=== PATIENT | male | born 1950 | race Caucasian/White ===

== ENCOUNTER → 2016-12-12 | Outpatient (CLI) | payer MEDICARE, MEDICAID ==
[~2016-12-12] MED LIST: AMIO200T44 PO; ASPI81 PO; ATOR40TA28 PO; CARV3 PO; FLUO20CA30 PO; FURO40 PO; LEVE500T53 PO; PANT40TA25 PO; POTA10TA17 PO; VALS80TA26 PO; WARF1 PO
[2016-12-12 13:56] LABS: BASOPHILS % (AUTO) 0.9 % (0.0-2.0); EOSINOPHILS % (AUTO) 2.6 % (1.0-6.0); HEMATOCRIT 35.6 % (41-53); HEMOGLOBIN 11.2 g/dL (13.5-17.5); LYMPHOCYTES # (AUTO) 1.2 K/uL (1.0-4.8); LYMPHOCYTES % (AUTO) 20.8 % (22.0-44.0); MEAN CORPUSCULAR HEMOGLOBIN 26.6 pg (26.0-34.0); MEAN CORPUSCULAR HGB CONC 31.5 G/dL (31.0-37.0); MEAN CORPUSCULAR VOLUME 85 fL (80-100); MONOCYTES # (AUTO) 0.5 K/uL (0.1-1.0); MONOCYTES % (AUTO) 8.9 % (2.0-9.0); NEUTROPHILS # (AUTO) 3.9 K/uL (1.8-7.7); NEUTROPHILS % (AUTO) 66.8 % (40.0-70.0); PLATELET COUNT (AUTO) 204 K/uL (150-450); RED BLOOD CELL COUNT(AUTO) 4.21 MIL/uL (4.50-5.90); RED CELL DISTRIBUTION WIDTH 19.1 % (11.5-14.5); WHITE BLOOD COUNT (AUTO) 5.8 K/uL (4.5-11.0)
[2016-12-12 13:58] LABS: RBC MORPHOLOGY COMMENT ABNORMAL RBC MORPH
[2016-12-12 14:10] LABS: HEMOGLOBIN A1C 6.2 % (4.5-6.2)
[2016-12-12 14:23] LABS: ALBUMIN 3.2 g/dL (3.4-5.0); BILIRUBIN,TOTAL 0.7 mg/dL (0.1-1.0); CALCIUM, TOTAL 8.6 mg/dL (8.8-10.5); CHOL/HDL RATIO 2.4 (4.2-7.3); CREATININE 1.3 mg/dL (0.60-1.30); DIGOXIN 0.34 ng/mL (0.90-2.00); POTASSIUM 3.6 mmol/L (3.5-5.1); THYROID STIMULATING HORMONE 3.38 uIU/mL (0.36-3.74); TOTAL PROTEIN, SERUM 7.9 g/dL (6.4-8.2)
== END | disposition home or self-care (01) ==
LOC: LABPV 10:05
PROVIDERS: ATTEND Internal Medicine Cardiovascular Disease
DX: I11.0 Hypertensive heart disease with heart failure (principal); I10 Essential (primary) hypertension; E11.8 Type 2 diabetes mellitus with unspecified complications; E55.9 Vitamin D deficiency, unspecified
CPT/HCPCS: 82306; 83036; 84439; 84443

== ENCOUNTER → 2017-03-11 | Outpatient (CLI) | payer MEDICARE, MEDICAID ==
[2017-03-11 09:23] LABS: BASOPHILS % (AUTO) 1.3 % (0.0-2.0); EOSINOPHILS % (AUTO) 5.3 % (1.0-6.0); HEMATOCRIT 48.2 % (41-53); HEMOGLOBIN 15.5 g/dL (13.5-17.5); LYMPHOCYTES # (AUTO) 1.6 K/uL (1.0-4.8); LYMPHOCYTES % (AUTO) 31.6 % (22.0-44.0); MEAN CORPUSCULAR HEMOGLOBIN 31.3 pg (26.0-34.0); MEAN CORPUSCULAR HGB CONC 32.1 G/dL (31.0-37.0); MEAN CORPUSCULAR VOLUME 97 fL (80-100); MONOCYTES # (AUTO) 0.5 K/uL (0.1-1.0); MONOCYTES % (AUTO) 9.7 % (2.0-9.0); NEUTROPHILS # (AUTO) 2.6 K/uL (1.8-7.7); NEUTROPHILS % (AUTO) 52.1 % (40.0-70.0); PLATELET COUNT (AUTO) 146 K/uL (150-450); RED BLOOD CELL COUNT(AUTO) 4.94 MIL/uL (4.50-5.90); RED CELL DISTRIBUTION WIDTH 15.4 % (11.5-14.5)
[2017-03-11 09:33] LABS: ALBUMIN 3.3 g/dL (3.4-5.0); BILIRUBIN,TOTAL 0.7 mg/dL (0.1-1.0); CALCIUM, TOTAL 8.6 mg/dL (8.8-10.5); CHOL/HDL RATIO 3.5 (4.2-7.3); CREATININE 1.3 mg/dL (0.60-1.30); DIGOXIN 0.87 ng/mL (0.90-2.00); TOTAL PROTEIN, SERUM 7.7 g/dL (6.4-8.2)
== END | disposition home or self-care (01) ==
LOC: LABPV 08:22
PROVIDERS: ATTEND Internal Medicine Cardiovascular Disease
DX: I11.0 Hypertensive heart disease with heart failure (principal); I50.9 Heart failure, unspecified; E11.8 Type 2 diabetes mellitus with unspecified complications; E55.9 Vitamin D deficiency, unspecified

== ENCOUNTER → 2017-05-11 | Outpatient (CLI) | payer MEDICARE, MEDICAID ==
[~2017-05-11] MED LIST changes: -AMIO200T44 PO
[2017-05-11 12:59] LABS: BASOPHILS % (AUTO) 1.1 % (0.0-2.0); EOSINOPHILS % (AUTO) 5.5 % (1.0-6.0); HEMATOCRIT 39.7 % (41-53); HEMOGLOBIN 13.8 g/dL (13.5-17.5); LYMPHOCYTES # (AUTO) 1.3 K/uL (1.0-4.8); LYMPHOCYTES % (AUTO) 31.5 % (22.0-44.0); MEAN CORPUSCULAR HEMOGLOBIN 34.2 pg (26.0-34.0); MEAN CORPUSCULAR HGB CONC 34.9 G/dL (31.0-37.0); MEAN CORPUSCULAR VOLUME 98 fL (80-100); MONOCYTES # (AUTO) 0.4 K/uL (0.1-1.0); MONOCYTES % (AUTO) 9.3 % (2.0-9.0); NEUTROPHILS # (AUTO) 2.1 K/uL (1.8-7.7); NEUTROPHILS % (AUTO) 52.6 % (40.0-70.0); PLATELET COUNT (AUTO) 144 K/uL (150-450); RED BLOOD CELL COUNT(AUTO) 4.04 MIL/uL (4.50-5.90); RED CELL DISTRIBUTION WIDTH 14.8 % (11.5-14.5)
[2017-05-11 13:24] LABS: ALANINE AMINOTRANSFERASE 35 U/L (12-78); ALBUMIN 3.5 g/dL (3.4-5.0); ANION GAP 12 mmol/L (8-16); ASPARTATE AMINOTRANSFERASE 45 U/L (15-37); BILIRUBIN,TOTAL 0.5 mg/dL (0.1-1.0); CALCIUM, TOTAL 9.5 mg/dL (8.8-10.5); CARBON DIOXIDE 25 mmol/L (22-29); CHLORIDE 100 mmol/L (98-107); CHOL/HDL RATIO 4.1 (4.2-7.3); CREATININE 1.09 mg/dL (0.60-1.30); DIGOXIN 0.87 ng/mL (0.90-2.00); GLOMERULAR FILTR. RATE CALC > 60 mL/min (>60); POTASSIUM 4.4 mmol/L (3.5-5.1); SODIUM SERUM 137 mmol/L (136-145); TOTAL PROTEIN, SERUM 7.8 g/dL (6.4-8.2); UREA NITROGEN, BLOOD 9 mg/dL (7-18)
== END | disposition home or self-care (01) ==
LOC: LABPV 09:22
PROVIDERS: ATTEND Internal Medicine Cardiovascular Disease
DX: I11.0 Hypertensive heart disease with heart failure (principal); I50.9 Heart failure, unspecified; E11.8 Type 2 diabetes mellitus with unspecified complications; E55.9 Vitamin D deficiency, unspecified

== ENCOUNTER 2017-07-25 11:44 | Emergency (ER) | payer MEDICARE, MEDICAID ==
[~2017-07-25] VITALS: Ht 170.2 cm; Wt 92.0 kg
[2017-07-25] MEDS ORDERED: WARF3TAB29 PO (12:06)
[2017-07-25 12:37] LABS: BASOPHILS # (AUTO) 0.05 K/uL (0.00-0.20); BASOPHILS % (AUTO) 0.8 % (0.0-2.0); EOSINOPHILS # (AUTO) 0.31 K/uL (0.00-0.70); EOSINOPHILS % (AUTO) 5.45 % (1.0-6.0); HEMATOCRIT 39.8 % (41-53); HEMOGLOBIN 13.5 g/dL (13.5-17.5); LYMPHOCYTES # (AUTO) 1.4 K/uL (1.0-4.8); LYMPHOCYTES % (AUTO) 23.8 % (22.0-44.0); MEAN CORPUSCULAR HEMOGLOBIN 35.4 pg (26.0-34.0); MEAN CORPUSCULAR VOLUME 104 fL (80-100); MONOCYTES # (AUTO) 0.7 K/uL (0.1-1.0); MONOCYTES % (AUTO) 11.9 % (2.0-9.0); NEUTROPHILS # (AUTO) 3.3 K/uL (1.8-7.7); PLATELET COUNT (AUTO) 178 K/uL (150-450); RED BLOOD CELL COUNT(AUTO) 3.82 MIL/uL (4.50-5.90); RED CELL DISTRIBUTION WIDTH 13.3 % (11.5-14.5); WHITE BLOOD COUNT (AUTO) 5.7 K/uL (4.5-11.0)
[2017-07-25 12:50] LABS: CREATININE 1.35 mg/dL (0.60-1.30); POTASSIUM 4.7 mmol/L (3.5-5.1)
[2017-07-25 12:51] LABS: ALBUMIN 3.3 g/dL (3.4-5.0); BILIRUBIN,TOTAL 0.4 mg/dL (0.1-1.0); TOTAL PROTEIN, SERUM 7.8 g/dL (6.4-8.2)
[2017-07-25 12:53] LABS: INR 1.8 (0.9-1.1); PROTHROMBIN TIME 18.5 SEC (9.4-11.6)
[2017-07-25 12:57] LABS: RBC MORPHOLOGY COMMENT ABNORMAL RBC MORPH
[2017-07-25] MEDS ORDERED: HYDROCODONE/ACETAMINOPHEN 5-325 MG TABLET PO ONE (13:15)
[2017-07-25] MEDS ORDERED: MORPHINE SULFATE 4 MG/ML SYRINGE IVP ONE (14:00)
[2017-07-25] MEDS ORDERED: ONDANSETRON HCL 4 MG/2 ML VIAL IVP ONE (14:00)
[2017-07-25] MEDS ORDERED: SODIUM CHLORIDE 0.9% 500 ML IV ONE (15:15)
[2017-07-25 16:16] VITALS: BP 119/63
== END 2017-07-25 16:20 | disposition home or self-care (01) ==
LOC: EMS 11:48
DX: M79.652 Pain in left thigh (principal); M79.672 Pain in left foot; I73.9 Peripheral vascular disease, unspecified; I11.0 Hypertensive heart disease with heart failure; I50.9 Heart failure, unspecified; I25.10 Atherosclerotic heart disease of native coronary artery without angina pectoris; E78.00 Pure hypercholesterolemia, unspecified; I48.91 Unspecified atrial fibrillation; I20.9 Angina pectoris, unspecified; Z95.1 Presence of aortocoronary bypass graft; Z95.0 Presence of cardiac pacemaker
CPT/HCPCS: 36415; 80053; 85025; 85379; 85610; 85730; 93005; 93925; 96361; 96374; 96375; 99285; J2270; J2405; J7040

== ENCOUNTER → 2017-09-15 | Outpatient (CLI) | payer MEDICARE, MEDICAID ==
[~2017-09-15] MED LIST changes: -WARF1 PO; +WARF3TAB29 PO
[2017-09-15 09:27] LABS: BASOPHILS % (AUTO) 0.8 % (0.0-2.0); EOSINOPHILS % (AUTO) 2.9 % (1.0-6.0); HEMATOCRIT 33.1 % (41-53); HEMOGLOBIN 11.7 g/dL (13.5-17.5); LYMPHOCYTES # (AUTO) 1.1 K/uL (1.0-4.8); LYMPHOCYTES % (AUTO) 16.9 % (22.0-44.0); MEAN CORPUSCULAR HEMOGLOBIN 35.5 pg (26.0-34.0); MEAN CORPUSCULAR HGB CONC 35.4 G/dL (31.0-37.0); MEAN CORPUSCULAR VOLUME 100 fL (80-100); MONOCYTES # (AUTO) 0.7 K/uL (0.1-1.0); MONOCYTES % (AUTO) 10.2 % (2.0-9.0); NEUTROPHILS # (AUTO) 4.5 K/uL (1.8-7.7); NEUTROPHILS % (AUTO) 69.2 % (40.0-70.0); PLATELET COUNT (AUTO) 179 K/uL (150-450); WHITE BLOOD COUNT (AUTO) 6.5 K/uL (4.5-11.0)
[2017-09-15 10:01] LABS: ALANINE AMINOTRANSFERASE 55 U/L (12-78); ALBUMIN 2.9 g/dL (3.4-5.0); ANION GAP 9 mmol/L (8-16); ASPARTATE AMINOTRANSFERASE 51 U/L (15-37); BILIRUBIN,TOTAL 0.6 mg/dL (0.1-1.0); CALCIUM, TOTAL 8.6 mg/dL (8.8-10.5); CARBON DIOXIDE 24 mmol/L (22-29); CHLORIDE 101 mmol/L (98-107); CHOL/HDL RATIO 5.3 (4.2-7.3); CREATININE 1.58 mg/dL (0.60-1.30); DIGOXIN 0.34 ng/mL (0.90-2.00); GLOMERULAR FILTR. RATE CALC 44 mL/min (>60); POTASSIUM 4.9 mmol/L (3.5-5.1); SODIUM SERUM 134 mmol/L (136-145); UREA NITROGEN, BLOOD 18 mg/dL (7-18)
[2017-09-15 10:20] LABS: RBC MORPHOLOGY COMMENT ABNORMAL RBC MORPH
== END | disposition home or self-care (01) ==
LOC: LABPV 08:29
PROVIDERS: ATTEND Internal Medicine Cardiovascular Disease
DX: I11.0 Hypertensive heart disease with heart failure (principal); I50.9 Heart failure, unspecified; E11.65 Type 2 diabetes mellitus with hyperglycemia; E55.9 Vitamin D deficiency, unspecified

== ENCOUNTER → 2017-10-23 | Outpatient (CLI) | payer MEDICARE, MEDICAID ==
[2017-10-23 10:14] LABS: EOSINOPHILS % (AUTO) 5.5 % (1.0-6.0); HEMOGLOBIN 11.3 g/dL (13.5-17.5); LYMPHOCYTES # (AUTO) 1.6 K/uL (1.0-4.8); LYMPHOCYTES % (AUTO) 28.8 % (22.0-44.0); MEAN CORPUSCULAR HEMOGLOBIN 35.5 pg (26.0-34.0); MEAN CORPUSCULAR HGB CONC 34.2 G/dL (31.0-37.0); MEAN CORPUSCULAR VOLUME 104 fL (80-100); MONOCYTES # (AUTO) 0.5 K/uL (0.1-1.0); MONOCYTES % (AUTO) 9.3 % (2.0-9.0); NEUTROPHILS % (AUTO) 55.4 % (40.0-70.0); PLATELET COUNT (AUTO) 193 K/uL (150-450); RED BLOOD CELL COUNT(AUTO) 3.17 MIL/uL (4.50-5.90); RED CELL DISTRIBUTION WIDTH 14.5 % (11.5-14.5)
[2017-10-23 10:28] LABS: BILIRUBIN,TOTAL 0.3 mg/dL (0.1-1.0); CALCIUM, TOTAL 8.9 mg/dL (8.8-10.5); CHOL/HDL RATIO 2.5 (4.2-7.3); CREATININE 1.51 mg/dL (0.60-1.30); TOTAL PROTEIN, SERUM 7.1 g/dL (6.4-8.2)
[2017-10-24 01:34] LABS: LDL CHOLESTEROL DIRECT 123 mg/dL (0-99)
== END | disposition home or self-care (01) ==
LOC: LABPV 08:20
PROVIDERS: ATTEND Internal Medicine Cardiovascular Disease
DX: I11.0 Hypertensive heart disease with heart failure (principal); I50.9 Heart failure, unspecified; E11.8 Type 2 diabetes mellitus with unspecified complications; E55.9 Vitamin D deficiency, unspecified
CPT/HCPCS: 83721

== ENCOUNTER → 2018-02-08 | Outpatient (CLI) | payer MEDICARE ==
[~2018-02-08] MED LIST changes: -VALS80TA26 PO; +VALS80TA31 PO
[2018-02-08 11:08] LABS: BASOPHILS % (AUTO) 0.9 % (0.0-2.0); EOSINOPHILS % (AUTO) 1.8 % (1.0-6.0); HEMATOCRIT 32.9 % (41-53); HEMOGLOBIN 11.4 g/dL (13.5-17.5); LYMPHOCYTES # (AUTO) 1.4 K/uL (1.0-4.8); LYMPHOCYTES % (AUTO) 20.1 % (22.0-44.0); MEAN CORPUSCULAR HEMOGLOBIN 35.1 pg (26.0-34.0); MEAN CORPUSCULAR HGB CONC 34.6 G/dL (31.0-37.0); MEAN CORPUSCULAR VOLUME 102 fL (80-100); MONOCYTES # (AUTO) 0.9 K/uL (0.1-1.0); NEUTROPHILS # (AUTO) 4.5 K/uL (1.8-7.7); NEUTROPHILS % (AUTO) 64.2 % (40.0-70.0); PLATELET COUNT (AUTO) 205 K/uL (150-450); RED BLOOD CELL COUNT(AUTO) 3.24 MIL/uL (4.50-5.90)
[2018-02-08 12:01] LABS: ALANINE AMINOTRANSFERASE 30 U/L (12-78); ALBUMIN 2.8 g/dL (3.4-5.0); ALKALINE PHOSPHATASE 144 U/L (46-116); ANION GAP 10 mmol/L (8-16); ASPARTATE AMINOTRANSFERASE 33 U/L (15-37); BILIRUBIN,TOTAL 0.4 mg/dL (0.1-1.0); CALCIUM, TOTAL 8.8 mg/dL (8.8-10.5); CARBON DIOXIDE 27 mmol/L (22-29); CHLORIDE 99 mmol/L (98-107); CHOL/HDL RATIO 3.2 (4.2-7.3); CHOLESTEROL 190 mg/dL (131-200); CREATININE 1.62 mg/dL (0.60-1.30); GLOMERULAR FILTR. RATE CALC 43 mL/min (>60); GLUCOSE,RANDOM 110 mg/dL (70-110); HDL CHOLESTEROL 60 mg/dL (40-60); POTASSIUM 4.7 mmol/L (3.5-5.1); SODIUM SERUM 136 mmol/L (136-145); TOTAL PROTEIN, SERUM 6.8 g/dL (6.4-8.2); TRIGLYCERIDES 459 mg/dL (15-150); UREA NITROGEN, BLOOD 14 mg/dL (7-18)
[2018-02-08 12:11] LABS: DIGOXIN < 0.20 ng/mL (0.90-2.00)
== END | disposition home or self-care (01) ==
LOC: LABPV 09:04
PROVIDERS: ATTEND Internal Medicine Cardiovascular Disease
DX: I11.0 Hypertensive heart disease with heart failure (principal); I50.9 Heart failure, unspecified; E11.8 Type 2 diabetes mellitus with unspecified complications; E55.9 Vitamin D deficiency, unspecified

== ENCOUNTER → 2018-02-18 | Outpatient (CLI) | payer MEDICARE ==
[2018-02-18 11:48] LABS: INR 1.1 (0.9-1.1); PROTHROMBIN TIME 11.5 SEC (9.4-11.6)
== END | disposition home or self-care (01) ==
LOC: LABPV 09:47
PROVIDERS: ATTEND Internal Medicine Cardiovascular Disease
DX: I11.0 Hypertensive heart disease with heart failure (principal); I50.9 Heart failure, unspecified

== ENCOUNTER → 2018-03-03 | Outpatient (CLI) | payer MEDICARE ==
[2018-03-03 10:14] LABS: PROTHROMBIN TIME 10.5 SEC (9.4-11.6)
[2018-03-03 10:20] LABS: CALCIUM, TOTAL 8.8 mg/dL (8.8-10.5); CREATININE 1.56 mg/dL (0.60-1.30); POTASSIUM 5.2 mmol/L (3.5-5.1)
== END | disposition home or self-care (01) ==
LOC: LABPV 09:01
PROVIDERS: ATTEND Internal Medicine Cardiovascular Disease
DX: I11.0 Hypertensive heart disease with heart failure (principal); I50.9 Heart failure, unspecified; E11.8 Type 2 diabetes mellitus with unspecified complications; E55.9 Vitamin D deficiency, unspecified; D56.5 Hemoglobin E-beta thalassemia

== ENCOUNTER 2018-04-13 09:13 | Emergency (ER) | payer MEDICARE ==
[~2018-04-13] VITALS: Ht 170.2 cm; Wt 95.0 kg
[~2018-04-13 09:13] MED LIST changes: -VALS80TA31 PO; +VALS80TA32 PO
[2018-04-13] MEDS ORDERED: LISI-661 PO (10:03)
[2018-04-13] MEDS ORDERED: FURO40 PO (10:03)
[2018-04-13] MEDS ORDERED: DIGO-44 PO (10:03)
[2018-04-13] MEDS ORDERED: KDUR20 PO (10:03)
[2018-04-13] MEDS ORDERED: VITAD1000 PO (10:03)
[2018-04-13] MEDS ORDERED: CLOP75 PO (10:03)
[2018-04-13] MEDS ORDERED: CYAN100 PO (10:03)
[2018-04-13] MEDS ORDERED: SPIR25 PO (10:03)
[2018-04-13] MEDS ORDERED: PARO20TA24 PO (10:03)
[2018-04-13] MEDS ORDERED: FOLI1 PO (10:03)
[2018-04-13] MEDS ORDERED: IBUPROFEN 800 MG TABLET PO ONE (10:15)
[2018-04-13] MEDS ORDERED: MORPHINE SULFATE 4 MG/ML SYRINGE IM ONE (11:00)
[2018-04-13] MEDS ORDERED: ONDANSETRON HCL 4 MG/2 ML VIAL IVP ONE (12:00)
[2018-04-13] MEDS ORDERED: FentaNYL CITRATE-PF 100 MCG/2 ML VIAL IVP ONE (12:00)
[2018-04-13 14:11] VITALS: BP 128/74
== END 2018-04-13 14:29 | disposition home or self-care (01) ==
LOC: EMS 09:16
DX: S82.841A Displaced bimalleolar fracture of right lower leg, initial encounter for closed fracture (principal); I11.0 Hypertensive heart disease with heart failure; I50.9 Heart failure, unspecified; E78.00 Pure hypercholesterolemia, unspecified; I48.91 Unspecified atrial fibrillation; I25.10 Atherosclerotic heart disease of native coronary artery without angina pectoris; X50.1XXA Overexertion from prolonged static or awkward postures, initial encounter; Y93.89 Activity, other specified; Y92.89 Other specified places as the place of occurrence of the external cause; Y99.8 Other external cause status
CPT/HCPCS: 27810; 73610; 73630; 93926; 96372; 96374; 99152; 99153; 99285; J2270; J2405; J3010

== ENCOUNTER 2018-04-23 22:02 | Inpatient (IN) | payer MEDICARE ==
[~2018-04-23] VITALS: Ht 170.2 cm; Wt 96.1 kg
[~2018-04-23 22:02] MED LIST changes: -ATOR40TA28 PO; +CLOP75 PO; +CYAN100 PO; +DIGO-44 PO; -FLUO20CA30 PO; +FOLI1 PO; +KDUR20 PO; +LISI-661 PO; -PANT40TA25 PO; +PARO20TA24 PO; -POTA10TA17 PO; +SPIR25 PO; -VALS80TA32 PO; +VITAD1000 PO; -WARF3TAB29 PO
[2018-04-23] MEDS ORDERED: SODIUM CHLORIDE 0.9% 100 ML ONE (22:17)
[2018-04-23] MEDS ORDERED: IOVERSOL 350 MG/ML 100 ML VIAL ONE (22:17)
[2018-04-23 22:27] LABS: BASOPHILS % (AUTO) 1.5 % (0.0-2.0); EOSINOPHILS % (AUTO) 4.5 % (1.0-6.0); HEMATOCRIT 30.6 % (41-53); HEMOGLOBIN 10.7 g/dL (13.5-17.5); LYMPHOCYTES # (AUTO) 1.5 K/uL (1.0-4.8); LYMPHOCYTES % (AUTO) 30.6 % (22.0-44.0); MEAN CORPUSCULAR HEMOGLOBIN 35.3 pg (26.0-34.0); MEAN CORPUSCULAR HGB CONC 34.9 G/dL (31.0-37.0); MEAN CORPUSCULAR VOLUME 101 fL (80-100); MONOCYTES # (AUTO) 0.6 K/uL (0.1-1.0); MONOCYTES % (AUTO) 11.6 % (2.0-9.0); NEUTROPHILS # (AUTO) 2.6 K/uL (1.8-7.7); NEUTROPHILS % (AUTO) 51.8 % (40.0-70.0); PLATELET COUNT (AUTO) 218 K/uL (150-450); RED BLOOD CELL COUNT(AUTO) 3.03 MIL/uL (4.50-5.90); RED CELL DISTRIBUTION WIDTH 13.1 % (11.5-14.5)
[2018-04-23 22:36] LABS: ANION GAP 11 mmol/L (8-16); CALCIUM, TOTAL 9.1 mg/dL (8.8-10.5); CARBON DIOXIDE 26 mmol/L (22-29); CHLORIDE 101 mmol/L (98-107); CREATININE 1.68 mg/dL (0.60-1.30); GLOMERULAR FILTR. RATE CALC 41 mL/min (>60); GLUCOSE,RANDOM 112 mg/dL (70-110); POTASSIUM 4.3 mmol/L (3.5-5.1); SODIUM SERUM 138 mmol/L (136-145); UREA NITROGEN, BLOOD 18 mg/dL (7-18)
[2018-04-23 22:40] LABS: INR 0.9 (0.9-1.1); PROTHROMBIN TIME 9.8 SEC (9.4-11.6)
[2018-04-23 22:42] LABS: ALANINE AMINOTRANSFERASE 42 U/L (12-78); ALBUMIN 3.2 g/dL (3.4-5.0); ALKALINE PHOSPHATASE 224 U/L (46-116); ASPARTATE AMINOTRANSFERASE 38 U/L (15-37); BILIRUBIN,TOTAL 0.3 mg/dL (0.1-1.0); CREATINE KINASE, TOTAL 69 U/L (39-308); TOTAL PROTEIN, SERUM 7.6 g/dL (6.4-8.2)
[2018-04-23] MEDS ORDERED: ONDANSETRON HCL 4 MG/2 ML VIAL IVP PRN (22:45)
[2018-04-23] MEDS ORDERED: ACETAMINOPHEN 325 MG TABLET PO PRN (22:45)
[2018-04-23] MEDS ORDERED: ALBUTEROL SULFATE 2.5 MG/0.5 ML NEB SOLUTION NEB PRN (22:45)
[2018-04-23] MEDS ORDERED: DEXTROSE 50%-WATER 25 GM/50 ML SYRINGE IVP PRN (22:45)
[2018-04-23] MEDS ORDERED: INSULIN LISPRO 100 UNITS/ML SQ PRN (22:45)
[2018-04-23] MEDS ORDERED: MAGNESIUM HYDROXIDE SUSPENSION 30 ML UDCUP PO PRN (22:45)
[2018-04-23] MEDS ORDERED: LORazepam 2 MG/ML VIAL IVP PRN (22:45)
[2018-04-23] MEDS ORDERED: LEVO50 PO (22:55)
[2018-04-23] MEDS ORDERED: ATOR20TA86 PO (22:55)
[2018-04-23] MEDS: LevETIRAcetam 750 MG in DEXTROSE 5%-WATER 100 ML IV SCH (23:02)
[2018-04-23] MEDS: CLOPIDOGREL BISULFATE 75 MG TABLET PO SCH (23:17)
[2018-04-23] MEDS: ATORVASTATIN CALCIUM 40 MG TABLET PO SCH (23:17)
[2018-04-23] MEDS: ASPIRIN 81 MG CHEWABLE TABLET PO SCH (23:18)
[2018-04-24] VITALS (7 sets, daily range): BP systolic 101–123; BP diastolic 50–61
[2018-04-24 01:34] LABS: APPEARANCE,URINE CLEAR (CLEAR); BILIRUBIN,URINE NEGATIVE (NEGATIVE); GLUCOSE, URINE (UA) NEGATIVE (NEGATIVE); KETONES,URINE NEGATIVE (NEGATIVE); LEUKOCYTE ESTERASE ,URINE NEGATIVE (NEGATIVE); NITRATE,URINE NEGATIVE (NEGATIVE); OCCULT BLOOD,URINE NEGATIVE (NEGATIVE); PH,URINE 5.5 (5.0-8.0); PROTEIN,URINE NEGATIVE (NEGATIVE); UROBILINOGEN,URINE 0.2 mg/dL (<=1.0)
[2018-04-24] MEDS: DOCUSATE SODIUM 100 MG CAPSULE PO SCH ×2 (08:00→20:42)
[2018-04-24] MEDS: HEPARIN SODIUM,PORCINE 5,000 UNITS/ML VIAL SQ SCH ×2 (08:00→20:50)
[2018-04-24] MEDS ORDERED: HYDROCODONE/ACETAMINOPHEN 5-325 MG TABLET PO PRN (08:00)
[2018-04-24] MEDS: CARVEDILOL 6.25 MG TABLET PO SCH ×2 (08:01→20:43)
[2018-04-24] MEDS: PANTOPRAZOLE SODIUM 40 MG/VIAL IVP SCH (08:01)
[2018-04-24 10:02] LABS: BASOPHILS % (AUTO) 1.4 % (0.0-2.0); EOSINOPHILS % (AUTO) 4.5 % (1.0-6.0); HEMATOCRIT 28.7 % (41-53); LYMPHOCYTES # (AUTO) 1.1 K/uL (1.0-4.8); LYMPHOCYTES % (AUTO) 24.3 % (22.0-44.0); MEAN CORPUSCULAR HEMOGLOBIN 35.2 pg (26.0-34.0); MEAN CORPUSCULAR VOLUME 101 fL (80-100); MONOCYTES # (AUTO) 0.5 K/uL (0.1-1.0); MONOCYTES % (AUTO) 11.1 % (2.0-9.0); NEUTROPHILS # (AUTO) 2.7 K/uL (1.8-7.7); NEUTROPHILS % (AUTO) 58.7 % (40.0-70.0); PLATELET COUNT (AUTO) 209 K/uL (150-450); RED BLOOD CELL COUNT(AUTO) 2.86 MIL/uL (4.50-5.90); RED CELL DISTRIBUTION WIDTH 12.8 % (11.5-14.5)
[2018-04-24 10:13] LABS: CALCIUM, TOTAL 8.9 mg/dL (8.8-10.5); CREATININE 1.31 mg/dL (0.60-1.30); POTASSIUM 4.1 mmol/L (3.5-5.1)
[2018-04-24] MEDS ORDERED: SODIUM CHLORIDE 0.9% 250 ML IV ONE (10:57)
[2018-04-24 11:08] LABS: GLUCOMETER DEV NAME(LOC) 5N 1P; GLUCOSE,POINT OF CARE 109 MG/DL (70-110)
[2018-04-24] MEDS: LevETIRAcetam 750 MG in DEXTROSE 5%-WATER 100 ML IV SCH ×2 (11:21→23:15)
[2018-04-24] MEDS: OxyCODONE HCL/ACETAMINOPHEN 5-325 MG TABLET PO PRN ×2 (15:20→23:21)
[2018-04-24 19:18] LABS: GLUCOMETER DEV NAME(LOC) 5N 1P; GLUCOSE,POINT OF CARE 120 MG/DL (70-110)
[2018-04-24 19:18] LABS: GLUCOMETER DEV NAME(LOC) 5N 1P; GLUCOSE,POINT OF CARE 114 MG/DL (70-110)
[2018-04-24] MEDS: ATORVASTATIN CALCIUM 40 MG TABLET PO SCH (20:42)
[2018-04-24] MEDS: CLOPIDOGREL BISULFATE 75 MG TABLET PO SCH (20:42)
[2018-04-24] MEDS: ASPIRIN 81 MG CHEWABLE TABLET PO SCH (20:43)
[2018-04-25 04:40] VITALS: BP 121/62
[2018-04-25 07:18] LABS: GLUCOMETER DEV NAME(LOC) 5N 1P; GLUCOSE,POINT OF CARE 98 MG/DL (70-110)
[2018-04-25 07:18] LABS: GLUCOMETER DEV NAME(LOC) 5N 1P; GLUCOSE,POINT OF CARE 116 MG/DL (70-110)
[2018-04-25 07:50] VITALS: BP 123/60
[2018-04-25] MEDS: HEPARIN SODIUM,PORCINE 5,000 UNITS/ML VIAL SQ SCH (08:06)
[2018-04-25] MEDS: DOCUSATE SODIUM 100 MG CAPSULE PO SCH (08:06)
[2018-04-25] MEDS: CARVEDILOL 6.25 MG TABLET PO SCH (08:06)
[2018-04-25] MEDS: PANTOPRAZOLE SODIUM 40 MG/VIAL IVP SCH (08:06)
[2018-04-25 11:34] VITALS: BP 111/56
[2018-04-25] MEDS: OxyCODONE HCL/ACETAMINOPHEN 5-325 MG TABLET PO PRN (11:41)
[2018-04-25] MEDS: LevETIRAcetam 750 MG in DEXTROSE 5%-WATER 100 ML IV SCH (11:41)
[2018-04-25 15:19] VITALS: BP 128/73
[2018-04-25] MEDS ORDERED: CLOP75 PO (16:44)
== END 2018-04-25 16:50 | disposition home or self-care (01) | DRG 683 ==
LOC: EMS 22:04 → 5N 23:12
PROVIDERS: ADMIT Internal Medicine; ATTEND Internal Medicine
DX: N17.9 Acute kidney failure, unspecified (principal); G45.9 Transient cerebral ischemic attack, unspecified; I50.40 Unspecified combined systolic (congestive) and diastolic (congestive) heart failure; E11.9 Type 2 diabetes mellitus without complications; E66.9 Obesity, unspecified; E78.00 Pure hypercholesterolemia, unspecified; E78.5 Hyperlipidemia, unspecified; F03.90 Unspecified dementia, unspecified severity, without behavioral disturbance, psychotic disturbance, mood disturbance, and anxiety; G40.909 Epilepsy, unspecified, not intractable, without status epilepticus; I11.0 Hypertensive heart disease with heart failure; I25.10 Atherosclerotic heart disease of native coronary artery without angina pectoris; I48.2 Chronic atrial fibrillation; Z79.4 Long term (current) use of insulin; Z95.1 Presence of aortocoronary bypass graft; Z79.899 Other long term (current) drug therapy; Z79.82 Long term (current) use of aspirin; Z95.0 Presence of cardiac pacemaker; Z68.33 Body mass index [BMI] 33.0-33.9, adult; S82.91XD Unspecified fracture of right lower leg, subsequent encounter for closed fracture with routine healing; Z86.73 Personal history of transient ischemic attack (TIA), and cerebral infarction without residual deficits
CPT/HCPCS: 70496; 93005; 93306; 97161; 99291; C9113; G0482; J0712; J1644; J7050; J7060

== ENCOUNTER 2018-06-17 09:19 | Emergency (ER) | payer MEDICARE ==
[~2018-06-17] VITALS: Ht 170.2 cm; Wt 95.0 kg
[~2018-06-17 09:19] MED LIST changes: +ATOR20TA86 PO; -DIGO-44 PO; -FOLI1 PO; -KDUR20 PO; +LEVO50 PO; -LISI-661 PO; -PARO20TA24 PO; -SPIR25 PO
[2018-06-17] MEDS ORDERED: FentaNYL CITRATE-PF 100 MCG/2 ML VIAL IM ONE (11:15)
[2018-06-17] MEDS ORDERED: ONDANSETRON HCL 4 MG/2 ML VIAL IM ONE (11:15)
[2018-06-17 11:58] VITALS: BP 120/69
== END 2018-06-17 14:02 | disposition home or self-care (01) ==
LOC: EMS 09:20
DX: S82.61XG Displaced fracture of lateral malleolus of right fibula, subsequent encounter for closed fracture with delayed healing (principal); I48.91 Unspecified atrial fibrillation; I20.9 Angina pectoris, unspecified; I25.10 Atherosclerotic heart disease of native coronary artery without angina pectoris; I11.0 Hypertensive heart disease with heart failure; I50.9 Heart failure, unspecified; E78.00 Pure hypercholesterolemia, unspecified; Z86.73 Personal history of transient ischemic attack (TIA), and cerebral infarction without residual deficits; Z95.0 Presence of cardiac pacemaker; Z95.1 Presence of aortocoronary bypass graft; Z79.82 Long term (current) use of aspirin; X58.XXXD Exposure to other specified factors, subsequent encounter
CPT/HCPCS: 73610; 96372; 99284; J2405; J3010

== ENCOUNTER 2018-12-25 04:49 | Inpatient (IN) | payer MEDICARE ==
[~2018-12-25] VITALS: Ht 170.2 cm; Wt 97.6 kg
[~2018-12-25 04:49] MED LIST changes: -CLOP75 PO; +CLOP75TA3 PO; -CYAN100 PO; +CYAN100T3 PO
[2018-12-25] MEDS ORDERED: PARO20TA24 PO (05:58)
[2018-12-25] MEDS ORDERED: APIX5TAB PO (05:58)
[2018-12-25 06:06] LABS: BASOPHILS % (AUTO) 1.2 % (0.0-2.0); EOSINOPHILS % (AUTO) 3.5 % (1.0-6.0); HEMATOCRIT 40.2 % (41-53); HEMOGLOBIN 13.1 g/dL (13.5-17.5); LYMPHOCYTES # (AUTO) 0.7 K/uL (1.0-4.8); LYMPHOCYTES % (AUTO) 10.9 % (22.0-44.0); MEAN CORPUSCULAR HEMOGLOBIN 30.7 pg (26.0-34.0); MEAN CORPUSCULAR HGB CONC 32.7 G/dL (31.0-37.0); MEAN CORPUSCULAR VOLUME 94 fL (80-100); MONOCYTES # (AUTO) 0.7 K/uL (0.1-1.0); MONOCYTES % (AUTO) 10.1 % (2.0-9.0); NEUTROPHILS % (AUTO) 74.3 % (40.0-70.0); RED BLOOD CELL COUNT(AUTO) 4.28 MIL/uL (4.50-5.90); RED CELL DISTRIBUTION WIDTH 14.9 % (11.5-14.5)
[2018-12-25 06:18] LABS: CALCIUM, TOTAL 8.8 mg/dL (8.8-10.5); CREATININE 1.22 mg/dL (0.60-1.30); POTASSIUM 3.9 mmol/L (3.5-5.1)
[2018-12-25 06:19] LABS: INR 1.3 (0.9-1.1); PROTHROMBIN TIME 13.4 SEC (9.4-11.6)
[2018-12-25 06:42] LABS: ALBUMIN 3.1 g/dL (3.4-5.0); BILIRUBIN,TOTAL 1.1 mg/dL (0.1-1.0); TOTAL PROTEIN, SERUM 7.3 g/dL (6.4-8.2)
[2018-12-25 07:09] LABS: PLATELET COUNT (AUTO) 82 K/uL (150-450)
[2018-12-25] MEDS ORDERED: AZITHROMYCIN 500 MG/NS 250 ML IV ONE (07:30)
[2018-12-25] MEDS ORDERED: FUROSEMIDE 40 MG/4 ML VIAL IVP ONE ×2 (07:30→22:00)
[2018-12-25 07:34] LABS: LACTIC ACID 1.2 mmol/L (0.4-2.0)
[2018-12-25] MEDS ORDERED: 0.9% SODIUM CHLORIDE 10 ML SYRINGE IVP PRN (08:15)
[2018-12-25] MEDS ORDERED: ACETAMINOPHEN 325 MG TABLET PO PRN (08:15)
[2018-12-25] MEDS ORDERED: ONDANSETRON HCL 4 MG/2 ML VIAL IVP PRN ×2 (08:15→21:45)
[2018-12-25 08:48] LABS: APPEARANCE,URINE CLEAR (CLEAR); BILIRUBIN,URINE NEGATIVE (NEGATIVE); GLUCOSE, URINE (UA) NEGATIVE (NEGATIVE); KETONES,URINE NEGATIVE (NEGATIVE); LEUKOCYTE ESTERASE ,URINE NEGATIVE (NEGATIVE); NITRATE,URINE NEGATIVE (NEGATIVE); OCCULT BLOOD,URINE NEGATIVE (NEGATIVE); PH,URINE 5.5 (5.0-8.0); PROTEIN,URINE POS 1+ (NEGATIVE)
[2018-12-25 09:13] LABS: BACTERIA,URINE None Seen /HPF (None Seen); RBC,URINE None Seen /HPF (0-2); SQUAMOUS EPITHELIAL CELL,UR Few /LPF (None Seen); WBC,URINE 0-2 /HPF (0-5)
[2018-12-25 20:54] VITALS: BP 127/67
[2018-12-25] MEDS ORDERED: IPRATROPIUM BROMIDE 0.5 MG/2.5 ML NEB SOLUTION NEB PRN (21:45)
[2018-12-25] MEDS ORDERED: FUROSEMIDE 40 MG TABLET PO SCH (21:45)
[2018-12-25] MEDS ORDERED: BISACODYL 10 MG RECTAL RECTAL SUPPOSITORY PR PRN (21:45)
[2018-12-25] MEDS ORDERED: HYDROCODONE/ACETAMINOPHEN 5-325 MG TABLET PO PRN (21:45)
[2018-12-25] MEDS ORDERED: ALBUTEROL SULFATE 2.5 MG/0.5 ML NEB SOLUTION NEB PRN (21:45)
[2018-12-25] MEDS ORDERED: MORPHINE SULFATE 2 MG/ML SYRINGE IVP PRN (21:45)
[2018-12-25] MEDS ORDERED: MAGNESIUM HYDROXIDE SUSPENSION 30 ML UDCUP PO PRN (21:45)
[2018-12-25] MEDS: LevETIRAcetam 500 MG TABLET PO SCH (22:03)
[2018-12-25] MEDS: CLOPIDOGREL BISULFATE 75 MG TABLET PO SCH (22:03)
[2018-12-25] MEDS: APIXABAN 5 MG TABLET PO SCH (22:14)
[2018-12-25] MEDS: CARVEDILOL 25 MG TABLET PO SCH (22:14)
[2018-12-25 23:54] VITALS: BP 129/68
[2018-12-26] MEDS: ZOLPIDEM TARTRATE 5 MG TABLET PO PRN (01:09)
[2018-12-26 05:36] VITALS: BP 125/71
[2018-12-26] MEDS: LEVOTHYROXINE SODIUM 50 MCG TABLET PO SCH (06:35)
[2018-12-26 06:48] LABS: BASOPHILS % (AUTO) 1.1 % (0.0-2.0); EOSINOPHILS % (AUTO) 4.9 % (1.0-6.0); HEMATOCRIT 37.4 % (41-53); HEMOGLOBIN 12.4 g/dL (13.5-17.5); LYMPHOCYTES # (AUTO) 0.9 K/uL (1.0-4.8); LYMPHOCYTES % (AUTO) 19.4 % (22.0-44.0); MEAN CORPUSCULAR HEMOGLOBIN 30.9 pg (26.0-34.0); MEAN CORPUSCULAR HGB CONC 33.2 G/dL (31.0-37.0); MEAN CORPUSCULAR VOLUME 93 fL (80-100); MONOCYTES # (AUTO) 0.6 K/uL (0.1-1.0); NEUTROPHILS % (AUTO) 62.6 % (40.0-70.0); PLATELET COUNT (AUTO) 87 K/uL (150-450); RED BLOOD CELL COUNT(AUTO) 4.01 MIL/uL (4.50-5.90); RED CELL DISTRIBUTION WIDTH 14.8 % (11.5-14.5)
[2018-12-26 07:32] LABS: ALANINE AMINOTRANSFERASE 14 U/L (12-78); ALKALINE PHOSPHATASE 274 U/L (46-116); ANION GAP 10 mmol/L (8-16); ASPARTATE AMINOTRANSFERASE 29 U/L (15-37); BILIRUBIN,TOTAL 1.2 mg/dL (0.1-1.0); CALCIUM, TOTAL 8.9 mg/dL (8.8-10.5); CARBON DIOXIDE 28 mmol/L (22-29); CHLORIDE 102 mmol/L (98-107); CREATININE 1.11 mg/dL (0.60-1.30); GLOMERULAR FILTR. RATE CALC > 60 mL/min (>60); GLUCOSE,RANDOM 104 mg/dL (70-110); POTASSIUM 3.1 mmol/L (3.5-5.1); SODIUM SERUM 140 mmol/L (136-145); TOTAL PROTEIN, SERUM 6.8 g/dL (6.4-8.2); UREA NITROGEN, BLOOD 12 mg/dL (7-18)
[2018-12-26 08:07] VITALS: BP 138/69
[2018-12-26] MEDS: ALBUTEROL SULFATE 2.5 MG/0.5 ML NEB SOLUTION NEB SCH ×3 (08:56→20:13)
[2018-12-26] MEDS: IPRATROPIUM BROMIDE 0.5 MG/2.5 ML NEB SOLUTION NEB SCH ×3 (08:56→20:13)
[2018-12-26] MEDS ORDERED: FUROSEMIDE 40 MG/4 ML VIAL IVP SCH (09:00)
[2018-12-26] MEDS: PANTOPRAZOLE SODIUM 40 MG/VIAL IVP SCH (09:35)
[2018-12-26] MEDS: ASPIRIN 81 MG CHEWABLE TABLET PO SCH (09:36)
[2018-12-26] MEDS: DOCUSATE SODIUM 100 MG CAPSULE PO SCH ×2 (09:36→20:10)
[2018-12-26] MEDS: CARVEDILOL 25 MG TABLET PO SCH ×2 (09:37→20:10)
[2018-12-26] MEDS: PARoxetine HCL 20 MG TABLET PO SCH (09:37)
[2018-12-26] MEDS: LevETIRAcetam 500 MG TABLET PO SCH ×2 (09:37→20:10)
[2018-12-26] MEDS: APIXABAN 5 MG TABLET PO SCH ×3 (09:37→20:58)
[2018-12-26] MEDS: POTASSIUM CHLORIDE 20 MEQ ER TABLET PO PRN ×2 (09:38→14:55)
[2018-12-26] MEDS: CHOLECALCIFEROL (VIT D3) 5,000 UNITS CAPSULE PO SCH (09:38)
[2018-12-26] MEDS: CYANOCOBALAMIN 100 MCG TABLET PO SCH (09:38)
[2018-12-26 12:01] VITALS: BP 115/81
[2018-12-26 16:02] VITALS: BP 150/78
[2018-12-26 20:00] VITALS: BP 124/81
[2018-12-26] MEDS: CLOPIDOGREL BISULFATE 75 MG TABLET PO SCH ×2 (20:10→20:58)
[2018-12-26] MEDS: ATORVASTATIN CALCIUM 20 MG TABLET PO SCH (20:10)
[2018-12-27 00:01] VITALS: BP 127/74
[2018-12-27] MEDS: IPRATROPIUM BROMIDE 0.5 MG/2.5 ML NEB SOLUTION NEB SCH ×4 (02:28→19:44)
[2018-12-27] MEDS: ALBUTEROL SULFATE 2.5 MG/0.5 ML NEB SOLUTION NEB SCH ×4 (02:28→19:44)
[2018-12-27 04:01] VITALS: BP 121/74
[2018-12-27] MEDS: LEVOTHYROXINE SODIUM 50 MCG TABLET PO SCH (05:41)
[2018-12-27 07:10] VITALS: BP 124/65
[2018-12-27 07:43] LABS: BASOPHILS % (AUTO) 2.3 % (0.0-2.0); EOSINOPHILS % (AUTO) 5.7 % (1.0-6.0); HEMATOCRIT 38.1 % (41-53); HEMOGLOBIN 12.5 g/dL (13.5-17.5); LYMPHOCYTES # (AUTO) 0.9 K/uL (1.0-4.8); LYMPHOCYTES % (AUTO) 19.3 % (22.0-44.0); MEAN CORPUSCULAR HEMOGLOBIN 31.1 pg (26.0-34.0); MEAN CORPUSCULAR HGB CONC 32.9 G/dL (31.0-37.0); MEAN CORPUSCULAR VOLUME 94 fL (80-100); MONOCYTES # (AUTO) 0.6 K/uL (0.1-1.0); MONOCYTES % (AUTO) 12.9 % (2.0-9.0); NEUTROPHILS # (AUTO) 2.9 K/uL (1.8-7.7); NEUTROPHILS % (AUTO) 59.8 % (40.0-70.0); PLATELET COUNT (AUTO) 79 K/uL (150-450); RED BLOOD CELL COUNT(AUTO) 4.04 MIL/uL (4.50-5.90); RED CELL DISTRIBUTION WIDTH 14.5 % (11.5-14.5)
[2018-12-27 07:49] LABS: ANION GAP 6 mmol/L (8-16); CALCIUM, TOTAL 8.9 mg/dL (8.8-10.5); CARBON DIOXIDE 29 mmol/L (22-29); CHLORIDE 102 mmol/L (98-107); GLOMERULAR FILTR. RATE CALC > 60 mL/min (>60); GLUCOSE,RANDOM 90 mg/dL (70-110); POTASSIUM 3.8 mmol/L (3.5-5.1); SODIUM SERUM 137 mmol/L (136-145); UREA NITROGEN, BLOOD 13 mg/dL (7-18)
[2018-12-27 07:55] LABS: ALANINE AMINOTRANSFERASE 15 U/L (12-78); ALKALINE PHOSPHATASE 280 U/L (46-116); ASPARTATE AMINOTRANSFERASE 30 U/L (15-37); BILIRUBIN,TOTAL 1.1 mg/dL (0.1-1.0); TOTAL PROTEIN, SERUM 6.9 g/dL (6.4-8.2)
[2018-12-27] MEDS: PARoxetine HCL 20 MG TABLET PO SCH (08:56)
[2018-12-27] MEDS: DOCUSATE SODIUM 100 MG CAPSULE PO SCH ×2 (08:57→21:10)
[2018-12-27] MEDS: CHOLECALCIFEROL (VIT D3) 5,000 UNITS CAPSULE PO SCH (08:57)
[2018-12-27] MEDS: CARVEDILOL 25 MG TABLET PO SCH ×2 (08:57→21:10)
[2018-12-27] MEDS: APIXABAN 5 MG TABLET PO SCH ×2 (08:57→21:11)
[2018-12-27] MEDS: ASPIRIN 81 MG CHEWABLE TABLET PO SCH (08:57)
[2018-12-27] MEDS: CYANOCOBALAMIN 100 MCG TABLET PO SCH (08:58)
[2018-12-27] MEDS: LevETIRAcetam 500 MG TABLET PO SCH ×2 (08:58→21:11)
[2018-12-27] MEDS: FUROSEMIDE 40 MG/4 ML VIAL IVP SCH ×2 (08:58→21:10)
[2018-12-27] MEDS: PANTOPRAZOLE SODIUM 40 MG/VIAL IVP SCH (08:59)
[2018-12-27 11:22] VITALS: BP 108/59
[2018-12-27 15:04] VITALS: BP 120/62
[2018-12-27 20:51] VITALS: BP 128/72
[2018-12-27] MEDS: CLOPIDOGREL BISULFATE 75 MG TABLET PO SCH (21:11)
[2018-12-27] MEDS: ATORVASTATIN CALCIUM 20 MG TABLET PO SCH (21:11)
[2018-12-28 00:42] VITALS: BP 116/77
[2018-12-28] MEDS: IPRATROPIUM BROMIDE 0.5 MG/2.5 ML NEB SOLUTION NEB SCH ×4 (02:07→20:03)
[2018-12-28] MEDS: ALBUTEROL SULFATE 2.5 MG/0.5 ML NEB SOLUTION NEB SCH ×4 (02:07→20:03)
[2018-12-28 04:54] VITALS: BP 113/61
[2018-12-28 06:00] LABS: BASOPHILS % (AUTO) 1.1 % (0.0-2.0); HEMATOCRIT 39.3 % (41-53); HEMOGLOBIN 12.7 g/dL (13.5-17.5); LYMPHOCYTES # (AUTO) 0.9 K/uL (1.0-4.8); LYMPHOCYTES % (AUTO) 17.8 % (22.0-44.0); MEAN CORPUSCULAR HEMOGLOBIN 30.6 pg (26.0-34.0); MEAN CORPUSCULAR HGB CONC 32.2 G/dL (31.0-37.0); MEAN CORPUSCULAR VOLUME 95 fL (80-100); MONOCYTES # (AUTO) 0.6 K/uL (0.1-1.0); MONOCYTES % (AUTO) 11.2 % (2.0-9.0); NEUTROPHILS # (AUTO) 3.2 K/uL (1.8-7.7); NEUTROPHILS % (AUTO) 64.9 % (40.0-70.0); PLATELET COUNT (AUTO) 84 K/uL (150-450); RED BLOOD CELL COUNT(AUTO) 4.14 MIL/uL (4.50-5.90); RED CELL DISTRIBUTION WIDTH 14.9 % (11.5-14.5)
[2018-12-28] MEDS: LEVOTHYROXINE SODIUM 50 MCG TABLET PO SCH (06:05)
[2018-12-28 06:34] LABS: BILIRUBIN,TOTAL 0.8 mg/dL (0.1-1.0); CALCIUM, TOTAL 9.1 mg/dL (8.8-10.5); CREATININE 1.21 mg/dL (0.60-1.30); POTASSIUM 3.7 mmol/L (3.5-5.1); TOTAL PROTEIN, SERUM 7.1 g/dL (6.4-8.2)
[2018-12-28 07:29] LABS: PLATELET MORPHOLOGY COMMENT LARGE PLTS PRESENT
[2018-12-28 07:33] VITALS: BP 103/68
[2018-12-28] MEDS: APIXABAN 5 MG TABLET PO SCH ×2 (08:28→20:28)
[2018-12-28] MEDS: FUROSEMIDE 40 MG/4 ML VIAL IVP SCH (08:28)
[2018-12-28] MEDS: ASPIRIN 81 MG CHEWABLE TABLET PO SCH (08:28)
[2018-12-28] MEDS: PANTOPRAZOLE SODIUM 40 MG/VIAL IVP SCH (08:28)
[2018-12-28] MEDS: LevETIRAcetam 500 MG TABLET PO SCH ×2 (08:29→20:28)
[2018-12-28] MEDS: DOCUSATE SODIUM 100 MG CAPSULE PO SCH ×2 (08:29→20:27)
[2018-12-28] MEDS: PARoxetine HCL 20 MG TABLET PO SCH (08:29)
[2018-12-28] MEDS: CYANOCOBALAMIN 100 MCG TABLET PO SCH (08:29)
[2018-12-28] MEDS: CHOLECALCIFEROL (VIT D3) 5,000 UNITS CAPSULE PO SCH (08:29)
[2018-12-28] MEDS: CARVEDILOL 25 MG TABLET PO SCH ×2 (09:00→20:27)
[2018-12-28 11:21] VITALS: BP 102/66
[2018-12-28 15:43] VITALS: BP 97/51
[2018-12-28] MEDS: BUMETANIDE 0.25 MG/ML 4 ML VIAL IVP SCH ×2 (16:19→20:27)
[2018-12-28] MEDS ORDERED: GuaiFENesin/CODEINE [SUGAR FREE] 200-20MG/10 ML SYRUP UDCUP PO PRN (17:00)
[2018-12-28 19:58] VITALS: BP 116/56
[2018-12-28] MEDS: ATORVASTATIN CALCIUM 20 MG TABLET PO SCH (20:28)
[2018-12-28] MEDS: CLOPIDOGREL BISULFATE 75 MG TABLET PO SCH (20:30)
[2018-12-29] VITALS (7 sets, daily range): BP systolic 112–124; BP diastolic 62–81
[2018-12-29] MEDS: ALBUTEROL SULFATE 2.5 MG/0.5 ML NEB SOLUTION NEB SCH ×4 (02:19→19:46)
[2018-12-29] MEDS: IPRATROPIUM BROMIDE 0.5 MG/2.5 ML NEB SOLUTION NEB SCH ×4 (02:19→19:46)
[2018-12-29] MEDS: LEVOTHYROXINE SODIUM 50 MCG TABLET PO SCH (05:49)
[2018-12-29 06:12] LABS: BASOPHILS % (AUTO) 1.2 % (0.0-2.0); EOSINOPHILS % (AUTO) 4.9 % (1.0-6.0); HEMATOCRIT 37.1 % (41-53); HEMOGLOBIN 11.9 g/dL (13.5-17.5); LYMPHOCYTES % (AUTO) 17.9 % (22.0-44.0); MEAN CORPUSCULAR HEMOGLOBIN 30.3 pg (26.0-34.0); MEAN CORPUSCULAR HGB CONC 32.1 G/dL (31.0-37.0); MEAN CORPUSCULAR VOLUME 94 fL (80-100); MONOCYTES # (AUTO) 0.5 K/uL (0.1-1.0); MONOCYTES % (AUTO) 9.9 % (2.0-9.0); NEUTROPHILS # (AUTO) 3.6 K/uL (1.8-7.7); NEUTROPHILS % (AUTO) 66.1 % (40.0-70.0); RED BLOOD CELL COUNT(AUTO) 3.94 MIL/uL (4.50-5.90); RED CELL DISTRIBUTION WIDTH 14.8 % (11.5-14.5)
[2018-12-29 06:26] LABS: ALANINE AMINOTRANSFERASE 20 U/L (12-78); ALBUMIN 2.9 g/dL (3.4-5.0); ALKALINE PHOSPHATASE 325 U/L (46-116); ANION GAP 6 mmol/L (8-16); ASPARTATE AMINOTRANSFERASE 35 U/L (15-37); BILIRUBIN,TOTAL 0.7 mg/dL (0.1-1.0); CALCIUM, TOTAL 9.1 mg/dL (8.8-10.5); CARBON DIOXIDE 32 mmol/L (22-29); CHLORIDE 101 mmol/L (98-107); CREATININE 1.09 mg/dL (0.60-1.30); GLOMERULAR FILTR. RATE CALC > 60 mL/min (>60); GLUCOSE,RANDOM 121 mg/dL (70-110); POTASSIUM 3.2 mmol/L (3.5-5.1); SODIUM SERUM 139 mmol/L (136-145); TOTAL PROTEIN, SERUM 6.7 g/dL (6.4-8.2); UREA NITROGEN, BLOOD 14 mg/dL (7-18)
[2018-12-29 07:21] LABS: PLATELET COUNT (AUTO) 91 K/uL (150-450)
[2018-12-29 07:22] LABS: PLATELET MORPHOLOGY COMMENT LARGE PLTS PRESENT
[2018-12-29] MEDS: CARVEDILOL 25 MG TABLET PO SCH ×2 (08:37→20:11)
[2018-12-29] MEDS: PARoxetine HCL 20 MG TABLET PO SCH (08:37)
[2018-12-29] MEDS: LevETIRAcetam 500 MG TABLET PO SCH ×2 (08:37→20:11)
[2018-12-29] MEDS: CHOLECALCIFEROL (VIT D3) 5,000 UNITS CAPSULE PO SCH (08:38)
[2018-12-29] MEDS: APIXABAN 5 MG TABLET PO SCH ×2 (08:38→20:11)
[2018-12-29] MEDS: CYANOCOBALAMIN 100 MCG TABLET PO SCH (08:38)
[2018-12-29] MEDS: DOCUSATE SODIUM 100 MG CAPSULE PO SCH ×2 (08:39→20:11)
[2018-12-29] MEDS: PANTOPRAZOLE SODIUM 40 MG/VIAL IVP SCH (08:41)
[2018-12-29] MEDS: BUMETANIDE 0.25 MG/ML 4 ML VIAL IVP SCH (08:41)
[2018-12-29] MEDS: ASPIRIN 81 MG CHEWABLE TABLET PO SCH (08:45)
[2018-12-29] MEDS ORDERED: BUMETANIDE 0.25 MG/ML 4 ML VIAL IVP ONE (11:15)
[2018-12-29] MEDS: POTASSIUM CHLORIDE 20 MEQ ER TABLET PO PRN (11:53)
[2018-12-29] MEDS: BUMETANIDE 0.25 MG/ML 10 ML VIAL IV SCH ×2 (14:11→19:02)
[2018-12-29] MEDS: ACETAMINOPHEN 325 MG TABLET PO PRN (14:14)
[2018-12-29] MEDS ORDERED: BUMETANIDE 0.25 MG/ML 10 ML VIAL IV SCH (16:00)
[2018-12-29] MEDS: CLOPIDOGREL BISULFATE 75 MG TABLET PO SCH (20:11)
[2018-12-29] MEDS: ATORVASTATIN CALCIUM 20 MG TABLET PO SCH (20:11)
[2018-12-29] MEDS: ZOLPIDEM TARTRATE 5 MG TABLET PO PRN (20:13)
[2018-12-30] MEDS: IPRATROPIUM BROMIDE 0.5 MG/2.5 ML NEB SOLUTION NEB SCH ×4 (02:01→20:24)
[2018-12-30] MEDS: ALBUTEROL SULFATE 2.5 MG/0.5 ML NEB SOLUTION NEB SCH ×4 (02:01→20:24)
[2018-12-30 04:45] VITALS: BP 127/68
[2018-12-30] MEDS: LEVOTHYROXINE SODIUM 50 MCG TABLET PO SCH (05:37)
[2018-12-30 05:55] LABS: BASOPHILS % (AUTO) 1.6 % (0.0-2.0); EOSINOPHILS % (AUTO) 4.8 % (1.0-6.0); HEMATOCRIT 36.4 % (41-53); HEMOGLOBIN 11.9 g/dL (13.5-17.5); LYMPHOCYTES # (AUTO) 0.9 K/uL (1.0-4.8); LYMPHOCYTES % (AUTO) 18.7 % (22.0-44.0); MEAN CORPUSCULAR HEMOGLOBIN 30.6 pg (26.0-34.0); MEAN CORPUSCULAR HGB CONC 32.8 G/dL (31.0-37.0); MEAN CORPUSCULAR VOLUME 93 fL (80-100); MONOCYTES # (AUTO) 0.6 K/uL (0.1-1.0); MONOCYTES % (AUTO) 11.4 % (2.0-9.0); NEUTROPHILS # (AUTO) 3.1 K/uL (1.8-7.7); NEUTROPHILS % (AUTO) 63.5 % (40.0-70.0); RED BLOOD CELL COUNT(AUTO) 3.89 MIL/uL (4.50-5.90); RED CELL DISTRIBUTION WIDTH 14.7 % (11.5-14.5)
[2018-12-30 06:30] LABS: B-TYPE NATRIURETIC PEPTIDE 494 pg/mL (0-100)
[2018-12-30 06:46] LABS: PLATELET COUNT (AUTO) 98 K/uL (150-450)
[2018-12-30 07:23] LABS: ALANINE AMINOTRANSFERASE 20 U/L (12-78); ALBUMIN 2.9 g/dL (3.4-5.0); ALKALINE PHOSPHATASE 334 U/L (46-116); ANION GAP 10 mmol/L (8-16); ASPARTATE AMINOTRANSFERASE 37 U/L (15-37); BILIRUBIN,TOTAL 0.8 mg/dL (0.1-1.0); CALCIUM, TOTAL 9.2 mg/dL (8.8-10.5); CARBON DIOXIDE 32 mmol/L (22-29); CHLORIDE 100 mmol/L (98-107); CREATININE 1.08 mg/dL (0.60-1.30); GLOMERULAR FILTR. RATE CALC > 60 mL/min (>60); GLUCOSE,RANDOM 112 mg/dL (70-110); POTASSIUM 3.3 mmol/L (3.5-5.1); SODIUM SERUM 142 mmol/L (136-145); TOTAL PROTEIN, SERUM 6.9 g/dL (6.4-8.2); UREA NITROGEN, BLOOD 16 mg/dL (7-18)
[2018-12-30 07:44] VITALS: BP 118/70
[2018-12-30] MEDS: BUMETANIDE 0.25 MG/ML 10 ML VIAL IV SCH ×3 (08:34→18:48)
[2018-12-30] MEDS: PANTOPRAZOLE SODIUM 40 MG/VIAL IVP SCH (08:35)
[2018-12-30] MEDS: POTASSIUM CHLORIDE 20 MEQ ER TABLET PO PRN (08:36)
[2018-12-30] MEDS: CHOLECALCIFEROL (VIT D3) 5,000 UNITS CAPSULE PO SCH (08:37)
[2018-12-30] MEDS: APIXABAN 5 MG TABLET PO SCH ×2 (08:37→20:11)
[2018-12-30] MEDS: PARoxetine HCL 20 MG TABLET PO SCH (08:37)
[2018-12-30] MEDS: DOCUSATE SODIUM 100 MG CAPSULE PO SCH ×2 (08:37→20:11)
[2018-12-30] MEDS: LevETIRAcetam 500 MG TABLET PO SCH ×2 (08:37→20:11)
[2018-12-30] MEDS: CYANOCOBALAMIN 100 MCG TABLET PO SCH (08:37)
[2018-12-30] MEDS: CARVEDILOL 25 MG TABLET PO SCH ×2 (08:38→20:11)
[2018-12-30] MEDS: ASPIRIN 81 MG CHEWABLE TABLET PO SCH (08:38)
[2018-12-30 11:10] VITALS: BP 102/72
[2018-12-30 15:34] VITALS: BP 118/73
[2018-12-30] MEDS ORDERED: METOLAZONE 5 MG TABLET PO ONE (17:15)
[2018-12-30 19:35] VITALS: BP 119/76
[2018-12-30] MEDS: ATORVASTATIN CALCIUM 20 MG TABLET PO SCH (20:10)
[2018-12-30] MEDS: CLOPIDOGREL BISULFATE 75 MG TABLET PO SCH (20:10)
[2018-12-30] MEDS: ZOLPIDEM TARTRATE 5 MG TABLET PO PRN (20:11)
[2018-12-30 23:55] VITALS: BP 108/55
[2018-12-31] MEDS: IPRATROPIUM BROMIDE 0.5 MG/2.5 ML NEB SOLUTION NEB SCH ×4 (02:15→19:57)
[2018-12-31] MEDS: ALBUTEROL SULFATE 2.5 MG/0.5 ML NEB SOLUTION NEB SCH ×4 (02:15→19:57)
[2018-12-31 05:20] VITALS: BP 127/74
[2018-12-31] MEDS: LEVOTHYROXINE SODIUM 50 MCG TABLET PO SCH (05:47)
[2018-12-31 06:00] LABS: BASOPHILS % (AUTO) 1.3 % (0.0-2.0); HEMATOCRIT 38.2 % (41-53); HEMOGLOBIN 12.3 g/dL (13.5-17.5); LYMPHOCYTES # (AUTO) 1.1 K/uL (1.0-4.8); MEAN CORPUSCULAR HEMOGLOBIN 29.8 pg (26.0-34.0); MEAN CORPUSCULAR HGB CONC 32.1 G/dL (31.0-37.0); MEAN CORPUSCULAR VOLUME 93 fL (80-100); MONOCYTES # (AUTO) 0.5 K/uL (0.1-1.0); MONOCYTES % (AUTO) 9.6 % (2.0-9.0); NEUTROPHILS # (AUTO) 3.4 K/uL (1.8-7.7); NEUTROPHILS % (AUTO) 64.1 % (40.0-70.0); RED BLOOD CELL COUNT(AUTO) 4.13 MIL/uL (4.50-5.90); RED CELL DISTRIBUTION WIDTH 14.6 % (11.5-14.5)
[2018-12-31 06:18] LABS: PLATELET COUNT (AUTO) 96 K/uL (150-450)
[2018-12-31 06:24] LABS: ALBUMIN 3.1 g/dL (3.4-5.0); BILIRUBIN,TOTAL 0.8 mg/dL (0.1-1.0); CALCIUM, TOTAL 9.3 mg/dL (8.8-10.5); CREATININE 1.23 mg/dL (0.60-1.30); POTASSIUM 3.1 mmol/L (3.5-5.1); TOTAL PROTEIN, SERUM 7.3 g/dL (6.4-8.2)
[2018-12-31 06:50] LABS: PLATELET MORPHOLOGY COMMENT LARGE PLTS PRESENT
[2018-12-31] MEDS: POTASSIUM CHLORIDE 20 MEQ ER TABLET PO PRN (06:50)
[2018-12-31] MEDS: BUMETANIDE 0.25 MG/ML 10 ML VIAL IV SCH ×3 (07:58→19:09)
[2018-12-31] MEDS: PANTOPRAZOLE SODIUM 40 MG/VIAL IVP SCH (07:59)
[2018-12-31] MEDS: DOCUSATE SODIUM 100 MG CAPSULE PO SCH ×2 (07:59→21:28)
[2018-12-31] MEDS: ASPIRIN 81 MG CHEWABLE TABLET PO SCH (07:59)
[2018-12-31] MEDS: APIXABAN 5 MG TABLET PO SCH ×2 (08:00→21:28)
[2018-12-31] MEDS: LevETIRAcetam 500 MG TABLET PO SCH ×2 (08:00→21:28)
[2018-12-31 08:01] VITALS: BP 111/56
[2018-12-31] MEDS: CHOLECALCIFEROL (VIT D3) 5,000 UNITS CAPSULE PO SCH (08:01)
[2018-12-31] MEDS: CYANOCOBALAMIN 100 MCG TABLET PO SCH (08:01)
[2018-12-31] MEDS: PARoxetine HCL 20 MG TABLET PO SCH (08:01)
[2018-12-31] MEDS: CARVEDILOL 25 MG TABLET PO SCH ×2 (08:02→21:29)
[2018-12-31] MEDS: ISOSORB DINIT/HYDRALAZINE HCL 20-37.5 MG TABLET PO SCH ×3 (10:33→21:28)
[2018-12-31] MEDS: METOLAZONE 5 MG TABLET PO SCH (10:36)
[2018-12-31 11:33] VITALS: BP 110/53
[2018-12-31 15:50] VITALS: BP 120/66
[2018-12-31 19:59] VITALS: BP 123/69
[2018-12-31 20:36] VITALS: BP 121/62
[2018-12-31] MEDS: CLOPIDOGREL BISULFATE 75 MG TABLET PO SCH (21:28)
[2018-12-31] MEDS: ATORVASTATIN CALCIUM 20 MG TABLET PO SCH (21:28)
[2019-01-01] VITALS (7 sets, daily range): BP systolic 99–117; BP diastolic 55–64
[2019-01-01] MEDS: IPRATROPIUM BROMIDE 0.5 MG/2.5 ML NEB SOLUTION NEB SCH ×4 (02:08→19:12)
[2019-01-01] MEDS: ALBUTEROL SULFATE 2.5 MG/0.5 ML NEB SOLUTION NEB SCH ×4 (02:08→19:12)
[2019-01-01 06:03] LABS: BASOPHILS % (AUTO) 1.2 % (0.0-2.0); EOSINOPHILS % (AUTO) 5.7 % (1.0-6.0); HEMATOCRIT 38.6 % (41-53); HEMOGLOBIN 12.5 g/dL (13.5-17.5); LYMPHOCYTES # (AUTO) 1.1 K/uL (1.0-4.8); LYMPHOCYTES % (AUTO) 17.6 % (22.0-44.0); MEAN CORPUSCULAR HEMOGLOBIN 29.6 pg (26.0-34.0); MEAN CORPUSCULAR HGB CONC 32.5 G/dL (31.0-37.0); MEAN CORPUSCULAR VOLUME 91 fL (80-100); MONOCYTES # (AUTO) 0.6 K/uL (0.1-1.0); MONOCYTES % (AUTO) 9.7 % (2.0-9.0); NEUTROPHILS % (AUTO) 65.8 % (40.0-70.0); PLATELET COUNT (AUTO) 129 K/uL (150-450); RED BLOOD CELL COUNT(AUTO) 4.23 MIL/uL (4.50-5.90); RED CELL DISTRIBUTION WIDTH 14.5 % (11.5-14.5)
[2019-01-01] MEDS: LEVOTHYROXINE SODIUM 50 MCG TABLET PO SCH (06:09)
[2019-01-01 06:27] LABS: ALBUMIN 3.3 g/dL (3.4-5.0); BILIRUBIN,TOTAL 0.9 mg/dL (0.1-1.0); CALCIUM, TOTAL 10.2 mg/dL (8.8-10.5); CREATININE 1.49 mg/dL (0.60-1.30); POTASSIUM 3.2 mmol/L (3.5-5.1); TOTAL PROTEIN, SERUM 7.6 g/dL (6.4-8.2)
[2019-01-01] MEDS: POTASSIUM CHLORIDE 20 MEQ ER TABLET PO PRN ×2 (06:50→12:03)
[2019-01-01] MEDS: BUMETANIDE 0.25 MG/ML 10 ML VIAL IV SCH ×3 (08:21→18:43)
[2019-01-01] MEDS: APIXABAN 5 MG TABLET PO SCH ×2 (08:22→20:07)
[2019-01-01] MEDS: ISOSORB DINIT/HYDRALAZINE HCL 20-37.5 MG TABLET PO SCH ×3 (08:22→20:03)
[2019-01-01] MEDS: CYANOCOBALAMIN 100 MCG TABLET PO SCH (08:23)
[2019-01-01] MEDS: METOLAZONE 5 MG TABLET PO SCH (08:23)
[2019-01-01] MEDS: CARVEDILOL 25 MG TABLET PO SCH ×2 (08:23→20:07)
[2019-01-01] MEDS: CHOLECALCIFEROL (VIT D3) 5,000 UNITS CAPSULE PO SCH (08:23)
[2019-01-01] MEDS: ASPIRIN 81 MG CHEWABLE TABLET PO SCH (08:23)
[2019-01-01] MEDS: DOCUSATE SODIUM 100 MG CAPSULE PO SCH ×2 (08:23→20:07)
[2019-01-01] MEDS: PARoxetine HCL 20 MG TABLET PO SCH (08:24)
[2019-01-01] MEDS: LevETIRAcetam 500 MG TABLET PO SCH ×2 (08:25→20:07)
[2019-01-01] MEDS: PANTOPRAZOLE SODIUM 40 MG/VIAL IVP SCH (08:25)
[2019-01-01] MEDS: ACETAMINOPHEN 325 MG TABLET PO PRN (18:52)
[2019-01-01] MEDS: ATORVASTATIN CALCIUM 20 MG TABLET PO SCH (20:07)
[2019-01-01] MEDS: CLOPIDOGREL BISULFATE 75 MG TABLET PO SCH (20:07)
[2019-01-02] MEDS: ALBUTEROL SULFATE 2.5 MG/0.5 ML NEB SOLUTION NEB SCH ×3 (02:18→14:40)
[2019-01-02] MEDS: IPRATROPIUM BROMIDE 0.5 MG/2.5 ML NEB SOLUTION NEB SCH ×3 (02:18→14:40)
[2019-01-02 05:16] VITALS: BP 101/56
[2019-01-02] MEDS: LEVOTHYROXINE SODIUM 50 MCG TABLET PO SCH (05:47)
[2019-01-02 06:21] LABS: BASOPHILS % (AUTO) 1.7 % (0.0-2.0); EOSINOPHILS % (AUTO) 5.4 % (1.0-6.0); HEMATOCRIT 43.6 % (41-53); HEMOGLOBIN 14.4 g/dL (13.5-17.5); LYMPHOCYTES # (AUTO) 1.3 K/uL (1.0-4.8); LYMPHOCYTES % (AUTO) 21.8 % (22.0-44.0); MEAN CORPUSCULAR HEMOGLOBIN 30.5 pg (26.0-34.0); MEAN CORPUSCULAR HGB CONC 32.9 G/dL (31.0-37.0); MEAN CORPUSCULAR VOLUME 93 fL (80-100); MONOCYTES # (AUTO) 0.6 K/uL (0.1-1.0); MONOCYTES % (AUTO) 10.6 % (2.0-9.0); NEUTROPHILS # (AUTO) 3.6 K/uL (1.8-7.7); NEUTROPHILS % (AUTO) 60.5 % (40.0-70.0); PLATELET COUNT (AUTO) 162 K/uL (150-450); RED BLOOD CELL COUNT(AUTO) 4.71 MIL/uL (4.50-5.90); RED CELL DISTRIBUTION WIDTH 14.9 % (11.5-14.5)
[2019-01-02 06:40] LABS: ALBUMIN 3.6 g/dL (3.4-5.0); BILIRUBIN,TOTAL 1.2 mg/dL (0.1-1.0); CALCIUM, TOTAL 10.6 mg/dL (8.8-10.5); CREATININE 1.64 mg/dL (0.60-1.30); POTASSIUM 3.1 mmol/L (3.5-5.1); TOTAL PROTEIN, SERUM 8.5 g/dL (6.4-8.2)
[2019-01-02 08:06] VITALS: BP 129/66
[2019-01-02] MEDS: DOCUSATE SODIUM 100 MG CAPSULE PO SCH (08:37)
[2019-01-02] MEDS: PARoxetine HCL 20 MG TABLET PO SCH (08:37)
[2019-01-02] MEDS: CHOLECALCIFEROL (VIT D3) 5,000 UNITS CAPSULE PO SCH (08:37)
[2019-01-02] MEDS: CYANOCOBALAMIN 100 MCG TABLET PO SCH (08:37)
[2019-01-02] MEDS: PANTOPRAZOLE SODIUM 40 MG/VIAL IVP SCH (08:37)
[2019-01-02] MEDS: METOLAZONE 5 MG TABLET PO SCH (08:37)
[2019-01-02] MEDS: BUMETANIDE 0.25 MG/ML 10 ML VIAL IV SCH ×2 (08:37→14:32)
[2019-01-02] MEDS: APIXABAN 5 MG TABLET PO SCH (08:37)
[2019-01-02] MEDS: LevETIRAcetam 500 MG TABLET PO SCH (08:37)
[2019-01-02] MEDS: ASPIRIN 81 MG CHEWABLE TABLET PO SCH (08:37)
[2019-01-02] MEDS: CARVEDILOL 25 MG TABLET PO SCH (08:38)
[2019-01-02] MEDS: ISOSORB DINIT/HYDRALAZINE HCL 20-37.5 MG TABLET PO SCH ×2 (08:38→16:00)
[2019-01-02] MEDS: POTASSIUM CHLORIDE 20 MEQ ER TABLET PO PRN (10:05)
[2019-01-02 11:24] VITALS: BP 110/72
[2019-01-02] MEDS ORDERED: BUME1TAB17 IV (12:06)
== END 2019-01-02 16:05 | DRG 291 ==
LOC: EMS 04:49 → 5S 19:13
PROVIDERS: ADMIT Hospitalist; ATTEND Hospitalist
DX: I13.0 Hypertensive heart and chronic kidney disease with heart failure and stage 1 through stage 4 chronic kidney disease, or unspecified chronic kidney disease (principal); J96.90 Respiratory failure, unspecified, unspecified whether with hypoxia or hypercapnia; I50.23 Acute on chronic systolic (congestive) heart failure; N18.4 Chronic kidney disease, stage 4 (severe); R56.9 Unspecified convulsions; E03.9 Hypothyroidism, unspecified; I25.5 Ischemic cardiomyopathy; I48.0 Paroxysmal atrial fibrillation; I25.10 Atherosclerotic heart disease of native coronary artery without angina pectoris; E78.00 Pure hypercholesterolemia, unspecified; J40 Bronchitis, not specified as acute or chronic; D69.6 Thrombocytopenia, unspecified; E87.6 Hypokalemia; Z86.73 Personal history of transient ischemic attack (TIA), and cerebral infarction without residual deficits; Z95.1 Presence of aortocoronary bypass graft; Z79.01 Long term (current) use of anticoagulants; Z79.02 Long term (current) use of antithrombotics/antiplatelets
CPT/HCPCS: 83605; 84132; 87040; 93005; 93306; 94640; 96365; 96366; 96375; C9113; G0378; J0456; J1940; J3490

== ENCOUNTER 2019-07-21 19:33 | Inpatient (IN) | payer MEDICARE ==
[~2019-07-21] VITALS: Ht 170.2 cm; Wt 111.7 kg
[~2019-07-21 19:33] MED LIST changes: +APIX5TAB PO; +BUME1TAB34 PO; +CHOL100018 PO; -FURO40 PO; +PARO20TA24 PO; -VITAD1000 PO
[2019-07-21] MEDS ORDERED: FURO20 PO (19:43)
[2019-07-21 20:13] LABS: BASOPHILS % (AUTO) 1.2 % (0.0-2.0); EOSINOPHILS % (AUTO) 4.9 % (1.0-6.0); HEMATOCRIT 35.2 % (41-53); HEMOGLOBIN 11.6 g/dL (13.5-17.5); LYMPHOCYTES # (AUTO) 0.8 K/uL (1.0-4.8); LYMPHOCYTES % (AUTO) 17.5 % (22.0-44.0); MEAN CORPUSCULAR HEMOGLOBIN 31.9 pg (26.0-34.0); MEAN CORPUSCULAR HGB CONC 32.9 G/dL (31.0-37.0); MEAN CORPUSCULAR VOLUME 97 fL (80-100); MONOCYTES # (AUTO) 0.6 K/uL (0.1-1.0); NEUTROPHILS # (AUTO) 2.8 K/uL (1.8-7.7); NEUTROPHILS % (AUTO) 63.4 % (40.0-70.0); PLATELET COUNT (AUTO) 123 K/uL (150-450); RED BLOOD CELL COUNT(AUTO) 3.64 MIL/uL (4.50-5.90); RED CELL DISTRIBUTION WIDTH 17.1 % (11.5-14.5)
[2019-07-21 20:25] LABS: ANION GAP 9 mmol/L (8-16); CALCIUM, TOTAL 8.3 mg/dL (8.8-10.5); CARBON DIOXIDE 29 mmol/L (22-29); CHLORIDE 104 mmol/L (98-107); CREATININE 1.16 mg/dL (0.60-1.30); GLOMERULAR FILTR. RATE CALC > 60 mL/min (>60); GLUCOSE,RANDOM 139 mg/dL (70-110); POTASSIUM 3.5 mmol/L (3.5-5.1); SODIUM SERUM 142 mmol/L (136-145); UREA NITROGEN, BLOOD 8 mg/dL (7-18)
[2019-07-21 20:30] LABS: ALANINE AMINOTRANSFERASE 14 U/L (12-78); ALBUMIN 2.7 g/dL (3.4-5.0); ALKALINE PHOSPHATASE 357 U/L (46-116); ASPARTATE AMINOTRANSFERASE 28 U/L (15-37); BILIRUBIN,TOTAL 1.8 mg/dL (0.1-1.0); TOTAL PROTEIN, SERUM 7.2 g/dL (6.4-8.2)
[2019-07-21 20:38] LABS: B-TYPE NATRIURETIC PEPTIDE 751 pg/mL (0-100)
[2019-07-21] MEDS ORDERED: FUROSEMIDE 40 MG/4 ML VIAL IVP ONE (21:15)
[2019-07-21 22:00] LABS: PHOSPHORUS 3.8 mg/dL (2.5-4.9)
[2019-07-21] MEDS ORDERED: CefTRIAXone 1 GM/DEXTROSE 50 ML IV ONE (22:30)
[2019-07-21] MEDS ORDERED: AZITHROMYCIN 500 MG/NS 250 ML IV ONE (22:30)
[2019-07-21 22:38] LABS: APPEARANCE,URINE CLEAR (CLEAR); BILIRUBIN,URINE NEGATIVE (NEGATIVE); GLUCOSE, URINE (UA) NEGATIVE (NEGATIVE); KETONES,URINE NEGATIVE (NEGATIVE); LEUKOCYTE ESTERASE ,URINE NEGATIVE (NEGATIVE); NITRATE,URINE NEGATIVE (NEGATIVE); OCCULT BLOOD,URINE NEGATIVE (NEGATIVE); PROTEIN,URINE TRACE (NEGATIVE)
[2019-07-21] MEDS ORDERED: ONDANSETRON HCL 4 MG/2 ML VIAL IVP PRN (22:45)
[2019-07-21] MEDS: CARVEDILOL 25 MG TABLET PO SCH (22:45)
[2019-07-21] MEDS ORDERED: IPRATROPIUM BROMIDE 0.5 MG/2.5 ML NEB SOLUTION NEB PRN (22:45)
[2019-07-21] MEDS ORDERED: ALBUTEROL SULFATE 2.5 MG/0.5 ML NEB SOLUTION NEB PRN (22:45)
[2019-07-21] MEDS ORDERED: ACETAMINOPHEN 325 MG TABLET PO PRN ×2 (22:45)
[2019-07-21] MEDS ORDERED: ZOLPIDEM TARTRATE 5 MG TABLET PO PRN (22:45)
[2019-07-21] MEDS ORDERED: 0.9% SODIUM CHLORIDE 10 ML SYRINGE IVP PRN ×2 (22:45)
[2019-07-21 22:56] LABS: WBC,URINE 0-2 /HPF (0-5)
[2019-07-21 22:57] LABS: BACTERIA,URINE Few /HPF (None Seen); SQUAMOUS EPITHELIAL CELL,UR Few /LPF (None Seen)
[2019-07-21 22:58] LABS: RBC,URINE 0-2 /HPF (0-2)
[2019-07-22] VITALS (7 sets, daily range): BP systolic 101–124; BP diastolic 57–79
[2019-07-22] MEDS: CLOPIDOGREL BISULFATE 75 MG TABLET PO SCH ×2 (00:30→20:15)
[2019-07-22] MEDS: APIXABAN 5 MG TABLET PO SCH ×3 (00:30→20:07)
[2019-07-22] MEDS: BUMETANIDE 0.25 MG/ML 4 ML VIAL IVP SCH ×4 (00:30→18:55)
[2019-07-22] MEDS: IPRATROPIUM BROMIDE 0.5 MG/2.5 ML NEB SOLUTION NEB SCH ×4 (01:12→20:52)
[2019-07-22] MEDS: ALBUTEROL SULFATE 2.5 MG/0.5 ML NEB SOLUTION NEB SCH ×4 (01:12→20:52)
[2019-07-22] MEDS ORDERED: -PHARMACY VACCINE NOTE- MISC ONE (05:15)
[2019-07-22] MEDS ORDERED: PNEUMOCOCCAL VACCINE POLYVALENT 0.5 ML VIAL [PPSV23] IM ONE (05:15)
[2019-07-22] MEDS ORDERED: INFLUENZA VIRUS VACCINE QVS 2019-20 (3YR+)/PF 60 MCG/0.5 ML SYRINGE IM ONE (05:15)
[2019-07-22 05:51] LABS: BASOPHILS % (AUTO) 1.5 % (0.0-2.0); EOSINOPHILS % (AUTO) 5.1 % (1.0-6.0); HEMATOCRIT 32.9 % (41-53); LYMPHOCYTES # (AUTO) 0.9 K/uL (1.0-4.8); LYMPHOCYTES % (AUTO) 19.8 % (22.0-44.0); MEAN CORPUSCULAR HEMOGLOBIN 32.4 pg (26.0-34.0); MEAN CORPUSCULAR HGB CONC 33.5 G/dL (31.0-37.0); MEAN CORPUSCULAR VOLUME 97 fL (80-100); MONOCYTES # (AUTO) 0.6 K/uL (0.1-1.0); NEUTROPHILS # (AUTO) 2.7 K/uL (1.8-7.7); NEUTROPHILS % (AUTO) 60.6 % (40.0-70.0); PLATELET COUNT (AUTO) 119 K/uL (150-450); RED BLOOD CELL COUNT(AUTO) 3.41 MIL/uL (4.50-5.90); RED CELL DISTRIBUTION WIDTH 17.2 % (11.5-14.5)
[2019-07-22 06:09] LABS: ALANINE AMINOTRANSFERASE 12 U/L (12-78); ALBUMIN 2.6 g/dL (3.4-5.0); ALKALINE PHOSPHATASE 328 U/L (46-116); ANION GAP 7 mmol/L (8-16); ASPARTATE AMINOTRANSFERASE 26 U/L (15-37); BILIRUBIN,TOTAL 1.8 mg/dL (0.1-1.0); CALCIUM, TOTAL 7.9 mg/dL (8.8-10.5); CARBON DIOXIDE 30 mmol/L (22-29); CHLORIDE 105 mmol/L (98-107); CREATININE 1.01 mg/dL (0.60-1.30); GLOMERULAR FILTR. RATE CALC > 60 mL/min (>60); GLUCOSE,RANDOM 99 mg/dL (70-110); POTASSIUM 3.2 mmol/L (3.5-5.1); SODIUM SERUM 142 mmol/L (136-145); TOTAL PROTEIN, SERUM 6.9 g/dL (6.4-8.2); UREA NITROGEN, BLOOD 7 mg/dL (7-18)
[2019-07-22] MEDS ORDERED: SODIUM CHLORIDE 0.9% 250 ML IV ONE (06:12)
[2019-07-22] MEDS: DOCUSATE SODIUM 100 MG CAPSULE PO SCH ×2 (08:48→20:07)
[2019-07-22] MEDS: ASPIRIN 81 MG CHEWABLE TABLET PO SCH (08:48)
[2019-07-22] MEDS: CARVEDILOL 25 MG TABLET PO SCH ×2 (08:48→20:15)
[2019-07-22] MEDS: PANTOPRAZOLE SODIUM 40 MG DR TABLET PO SCH (08:49)
[2019-07-22] MEDS: CHOLECALCIFEROL (VIT D3) 5,000 UNITS CAPSULE PO SCH (08:49)
[2019-07-22] MEDS: PARoxetine HCL 20 MG TABLET PO SCH (08:49)
[2019-07-22] MEDS: CYANOCOBALAMIN 100 MCG TABLET PO SCH (08:49)
[2019-07-22] MEDS: LevETIRAcetam 500 MG TABLET PO SCH ×2 (08:49→20:07)
[2019-07-22] MEDS ORDERED: CHOL50004 PO (17:22)
[2019-07-22] MEDS ORDERED: CARV25 PO (17:22)
[2019-07-22] MEDS ORDERED: POTASSIUM CHLORIDE 20 MEQ ER TABLET PO ONE (20:00)
[2019-07-22] MEDS: SPIRONOLACTONE 25 MG TABLET PO SCH (20:07)
[2019-07-22] MEDS: ATORVASTATIN CALCIUM 20 MG TABLET PO SCH (20:07)
[2019-07-22] MEDS: CefTRIAXone 1 GM/DEXTROSE 50 ML IV SCH (22:22)
[2019-07-22] MEDS: AZITHROMYCIN 500 MG/NS 250 ML IV SCH (23:39)
[2019-07-23] MEDS: BUMETANIDE 0.25 MG/ML 4 ML VIAL IVP SCH ×4 (01:02→17:07)
[2019-07-23] MEDS: ALBUTEROL SULFATE 2.5 MG/0.5 ML NEB SOLUTION NEB SCH ×4 (02:53→19:52)
[2019-07-23] MEDS: IPRATROPIUM BROMIDE 0.5 MG/2.5 ML NEB SOLUTION NEB SCH ×4 (02:53→19:52)
[2019-07-23 04:19] VITALS: BP 118/54
[2019-07-23 07:36] VITALS: BP 108/66
[2019-07-23] MEDS: DOCUSATE SODIUM 100 MG CAPSULE PO SCH ×2 (08:54→20:55)
[2019-07-23] MEDS: PANTOPRAZOLE SODIUM 40 MG DR TABLET PO SCH (08:54)
[2019-07-23] MEDS: SPIRONOLACTONE 25 MG TABLET PO SCH ×2 (08:54→20:56)
[2019-07-23] MEDS: ASPIRIN 81 MG CHEWABLE TABLET PO SCH (08:54)
[2019-07-23] MEDS: APIXABAN 5 MG TABLET PO SCH ×2 (08:55→20:55)
[2019-07-23] MEDS: CYANOCOBALAMIN 100 MCG TABLET PO SCH (08:55)
[2019-07-23] MEDS: CARVEDILOL 25 MG TABLET PO SCH ×2 (08:55→22:57)
[2019-07-23] MEDS: LevETIRAcetam 500 MG TABLET PO SCH ×2 (09:00→20:54)
[2019-07-23] MEDS: PARoxetine HCL 20 MG TABLET PO SCH (09:00)
[2019-07-23] MEDS: CHOLECALCIFEROL (VIT D3) 5,000 UNITS CAPSULE PO SCH (09:01)
[2019-07-23] MEDS: LEVOTHYROXINE SODIUM 50 MCG TABLET PO SCH (09:01)
[2019-07-23 09:49] LABS: B-TYPE NATRIURETIC PEPTIDE 576 pg/mL (0-100)
[2019-07-23 09:51] LABS: ANION GAP 6 mmol/L (8-16); CALCIUM, TOTAL 8.3 mg/dL (8.8-10.5); CARBON DIOXIDE 31 mmol/L (22-29); CHLORIDE 103 mmol/L (98-107); CREATININE 1.18 mg/dL (0.60-1.30); GLOMERULAR FILTR. RATE CALC > 60 mL/min (>60); GLUCOSE,RANDOM 129 mg/dL (70-110); POTASSIUM 3.4 mmol/L (3.5-5.1); SODIUM SERUM 140 mmol/L (136-145); UREA NITROGEN, BLOOD 9 mg/dL (7-18)
[2019-07-23 10:07] LABS: BASOPHILS % (AUTO) 1.4 % (0.0-2.0); EOSINOPHILS % (AUTO) 5.4 % (1.0-6.0); HEMATOCRIT 32.7 % (41-53); HEMOGLOBIN 10.9 g/dL (13.5-17.5); LYMPHOCYTES # (AUTO) 0.7 K/uL (1.0-4.8); LYMPHOCYTES % (AUTO) 15.3 % (22.0-44.0); MEAN CORPUSCULAR HEMOGLOBIN 32.4 pg (26.0-34.0); MEAN CORPUSCULAR HGB CONC 33.4 G/dL (31.0-37.0); MEAN CORPUSCULAR VOLUME 97 fL (80-100); MONOCYTES # (AUTO) 0.5 K/uL (0.1-1.0); MONOCYTES % (AUTO) 11.3 % (2.0-9.0); NEUTROPHILS # (AUTO) 2.8 K/uL (1.8-7.7); NEUTROPHILS % (AUTO) 66.6 % (40.0-70.0); PLATELET COUNT (AUTO) 118 K/uL (150-450); RED BLOOD CELL COUNT(AUTO) 3.36 MIL/uL (4.50-5.90); RED CELL DISTRIBUTION WIDTH 16.7 % (11.5-14.5)
[2019-07-23 10:21] LABS: ALANINE AMINOTRANSFERASE 11 U/L (12-78); ALBUMIN 2.8 g/dL (3.4-5.0); ALKALINE PHOSPHATASE 330 U/L (46-116); ASPARTATE AMINOTRANSFERASE 27 U/L (15-37); BILIRUBIN,TOTAL 1.9 mg/dL (0.1-1.0)
[2019-07-23 11:21] VITALS: BP 98/61
[2019-07-23 15:30] VITALS: BP 95/64
[2019-07-23] MEDS: POTASSIUM CHLORIDE 20 MEQ ER TABLET PO PRN (17:08)
[2019-07-23 20:25] VITALS: BP 112/59
[2019-07-23] MEDS: ATORVASTATIN CALCIUM 20 MG TABLET PO SCH (20:55)
[2019-07-23] MEDS: CLOPIDOGREL BISULFATE 75 MG TABLET PO SCH (22:55)
[2019-07-23] MEDS: CefTRIAXone 1 GM/DEXTROSE 50 ML IV SCH (22:56)
[2019-07-24] VITALS (7 sets, daily range): BP systolic 94–166; BP diastolic 49–90
[2019-07-24] MEDS: BUMETANIDE 0.25 MG/ML 4 ML VIAL IVP SCH ×4 (00:50→20:10)
[2019-07-24] MEDS: AZITHROMYCIN 500 MG/NS 250 ML IV SCH ×2 (00:50→22:26)
[2019-07-24] MEDS: ALBUTEROL SULFATE 2.5 MG/0.5 ML NEB SOLUTION NEB SCH ×4 (02:44→19:35)
[2019-07-24] MEDS: IPRATROPIUM BROMIDE 0.5 MG/2.5 ML NEB SOLUTION NEB SCH ×4 (02:44→19:35)
[2019-07-24] MEDS: LEVOTHYROXINE SODIUM 50 MCG TABLET PO SCH (05:48)
[2019-07-24 07:26] LABS: BASOPHILS % (AUTO) 1.5 % (0.0-2.0); HEMATOCRIT 33.5 % (41-53); HEMOGLOBIN 11.4 g/dL (13.5-17.5); LYMPHOCYTES # (AUTO) 0.9 K/uL (1.0-4.8); LYMPHOCYTES % (AUTO) 16.5 % (22.0-44.0); MEAN CORPUSCULAR HEMOGLOBIN 33.2 pg (26.0-34.0); MEAN CORPUSCULAR VOLUME 98 fL (80-100); MONOCYTES # (AUTO) 0.6 K/uL (0.1-1.0); MONOCYTES % (AUTO) 10.8 % (2.0-9.0); NEUTROPHILS # (AUTO) 3.4 K/uL (1.8-7.7); NEUTROPHILS % (AUTO) 66.2 % (40.0-70.0); PLATELET COUNT (AUTO) 124 K/uL (150-450); RED BLOOD CELL COUNT(AUTO) 3.43 MIL/uL (4.50-5.90); RED CELL DISTRIBUTION WIDTH 17.1 % (11.5-14.5)
[2019-07-24 07:59] LABS: ALBUMIN 2.9 g/dL (3.4-5.0); BILIRUBIN,TOTAL 1.8 mg/dL (0.1-1.0); CALCIUM, TOTAL 8.5 mg/dL (8.8-10.5); CREATININE 1.21 mg/dL (0.60-1.30); POTASSIUM 3.4 mmol/L (3.5-5.1); TOTAL PROTEIN, SERUM 7.2 g/dL (6.4-8.2)
[2019-07-24] MEDS: CYANOCOBALAMIN 100 MCG TABLET PO SCH (09:13)
[2019-07-24] MEDS: APIXABAN 5 MG TABLET PO SCH ×2 (09:14→20:11)
[2019-07-24] MEDS: PARoxetine HCL 20 MG TABLET PO SCH (09:14)
[2019-07-24] MEDS: DOCUSATE SODIUM 100 MG CAPSULE PO SCH ×2 (09:14→20:11)
[2019-07-24] MEDS: CHOLECALCIFEROL (VIT D3) 5,000 UNITS CAPSULE PO SCH (09:14)
[2019-07-24] MEDS: PANTOPRAZOLE SODIUM 40 MG DR TABLET PO SCH (09:16)
[2019-07-24] MEDS: LISINOPRIL 5 MG TABLET PO SCH (09:16)
[2019-07-24] MEDS: LevETIRAcetam 500 MG TABLET PO SCH ×2 (09:16→20:11)
[2019-07-24] MEDS: SPIRONOLACTONE 25 MG TABLET PO SCH ×2 (09:17→20:11)
[2019-07-24] MEDS: ASPIRIN 81 MG CHEWABLE TABLET PO SCH (09:17)
[2019-07-24] MEDS: POTASSIUM CHLORIDE 20 MEQ ER TABLET PO PRN (11:08)
[2019-07-24] MEDS: CARVEDILOL 25 MG TABLET PO SCH ×3 (11:11→21:00)
[2019-07-24] MEDS: CLOPIDOGREL BISULFATE 75 MG TABLET PO SCH (20:10)
[2019-07-24] MEDS: ATORVASTATIN CALCIUM 20 MG TABLET PO SCH (20:10)
[2019-07-24] MEDS: CefTRIAXone 1 GM/DEXTROSE 50 ML IV SCH (21:55)
[2019-07-24] MEDS ORDERED: SODIUM CHLORIDE 3% 15 ML NEB SOLUTION NEB ONE (23:35)
[2019-07-25] MEDS: IPRATROPIUM BROMIDE 0.5 MG/2.5 ML NEB SOLUTION NEB SCH ×4 (02:31→20:04)
[2019-07-25] MEDS: ALBUTEROL SULFATE 2.5 MG/0.5 ML NEB SOLUTION NEB SCH ×4 (02:31→20:05)
[2019-07-25 05:10] VITALS: BP 107/61
[2019-07-25] MEDS: LEVOTHYROXINE SODIUM 50 MCG TABLET PO SCH ×2 (05:12→06:37)
[2019-07-25 06:57] LABS: BASOPHILS % (AUTO) 1.2 % (0.0-2.0); EOSINOPHILS % (AUTO) 5.3 % (1.0-6.0); HEMATOCRIT 32.9 % (41-53); HEMOGLOBIN 11.1 g/dL (13.5-17.5); LYMPHOCYTES # (AUTO) 0.8 K/uL (1.0-4.8); LYMPHOCYTES % (AUTO) 18.2 % (22.0-44.0); MEAN CORPUSCULAR HGB CONC 33.7 G/dL (31.0-37.0); MEAN CORPUSCULAR VOLUME 98 fL (80-100); MONOCYTES # (AUTO) 0.6 K/uL (0.1-1.0); NEUTROPHILS # (AUTO) 2.8 K/uL (1.8-7.7); NEUTROPHILS % (AUTO) 62.3 % (40.0-70.0); PLATELET COUNT (AUTO) 122 K/uL (150-450); RED BLOOD CELL COUNT(AUTO) 3.36 MIL/uL (4.50-5.90); RED CELL DISTRIBUTION WIDTH 16.4 % (11.5-14.5)
[2019-07-25 07:33] LABS: ALANINE AMINOTRANSFERASE 11 U/L (12-78); ALBUMIN 2.7 g/dL (3.4-5.0); ALKALINE PHOSPHATASE 296 U/L (46-116); ANION GAP 9 mmol/L (8-16); ASPARTATE AMINOTRANSFERASE 24 U/L (15-37); BILIRUBIN,TOTAL 1.6 mg/dL (0.1-1.0); CALCIUM, TOTAL 8.5 mg/dL (8.8-10.5); CARBON DIOXIDE 29 mmol/L (22-29); CHLORIDE 103 mmol/L (98-107); CREATININE 1.13 mg/dL (0.60-1.30); GLOMERULAR FILTR. RATE CALC > 60 mL/min (>60); GLUCOSE,RANDOM 86 mg/dL (70-110); POTASSIUM 3.8 mmol/L (3.5-5.1); SODIUM SERUM 141 mmol/L (136-145); TOTAL PROTEIN, SERUM 7.1 g/dL (6.4-8.2); UREA NITROGEN, BLOOD 12 mg/dL (7-18)
[2019-07-25] MEDS: CARVEDILOL 25 MG TABLET PO SCH (08:12)
[2019-07-25] MEDS: SPIRONOLACTONE 25 MG TABLET PO SCH ×2 (08:12→20:17)
[2019-07-25] MEDS: BUMETANIDE 0.25 MG/ML 4 ML VIAL IVP SCH (08:12)
[2019-07-25] MEDS: LISINOPRIL 5 MG TABLET PO SCH (08:13)
[2019-07-25 08:17] VITALS: BP 98/54
[2019-07-25] MEDS: PANTOPRAZOLE SODIUM 40 MG DR TABLET PO SCH (08:18)
[2019-07-25] MEDS: LevETIRAcetam 500 MG TABLET PO SCH ×2 (08:18→20:17)
[2019-07-25] MEDS: DOCUSATE SODIUM 100 MG CAPSULE PO SCH ×2 (08:18→20:17)
[2019-07-25] MEDS: CHOLECALCIFEROL (VIT D3) 5,000 UNITS CAPSULE PO SCH (08:18)
[2019-07-25] MEDS: APIXABAN 5 MG TABLET PO SCH ×2 (08:18→20:17)
[2019-07-25] MEDS: PARoxetine HCL 20 MG TABLET PO SCH (08:18)
[2019-07-25] MEDS: CYANOCOBALAMIN 100 MCG TABLET PO SCH (08:18)
[2019-07-25] MEDS: ASPIRIN 81 MG CHEWABLE TABLET PO SCH (08:18)
[2019-07-25 11:06] VITALS: BP 91/63
[2019-07-25] MEDS: BUMETANIDE 10 MG in DEXTROSE 5%-WATER 60 ML IV SCH (11:43)
[2019-07-25 11:52] VITALS: BP 103/64
[2019-07-25 15:03] VITALS: BP 100/51
[2019-07-25 17:15] LABS: CALCIUM, TOTAL 8.6 mg/dL (8.8-10.5); CREATININE 1.22 mg/dL (0.60-1.30); MAGNESIUM 1.8 mg/dL (1.80-2.40); PHOSPHORUS 3.7 mg/dL (2.5-4.9)
[2019-07-25] MEDS: ATORVASTATIN CALCIUM 20 MG TABLET PO SCH (20:17)
[2019-07-25] MEDS: CLOPIDOGREL BISULFATE 75 MG TABLET PO SCH (20:20)
[2019-07-25] MEDS: CARVEDILOL 3.125 MG TABLET PO SCH (21:00)
[2019-07-25 21:06] VITALS: BP 114/74
[2019-07-25 21:39] LABS: CALCIUM, TOTAL 8.7 mg/dL (8.8-10.5); CREATININE 1.24 mg/dL (0.60-1.30); MAGNESIUM 1.8 mg/dL (1.80-2.40); PHOSPHORUS 3.9 mg/dL (2.5-4.9)
[2019-07-25] MEDS: CefTRIAXone 1 GM/DEXTROSE 50 ML IV SCH (22:10)
[2019-07-25] MEDS: AZITHROMYCIN 500 MG/NS 250 ML IV SCH (23:00)
[2019-07-26 00:20] VITALS: BP 114/76
[2019-07-26] MEDS ORDERED: SODIUM CHLORIDE 0.9% 250 ML IV ONE (02:08)
[2019-07-26] MEDS: IPRATROPIUM BROMIDE 0.5 MG/2.5 ML NEB SOLUTION NEB SCH ×4 (02:53→22:02)
[2019-07-26] MEDS: ALBUTEROL SULFATE 2.5 MG/0.5 ML NEB SOLUTION NEB SCH ×4 (02:53→22:01)
[2019-07-26] MEDS: BUMETANIDE 10 MG in DEXTROSE 5%-WATER 60 ML IV SCH (05:00)
[2019-07-26 05:02] VITALS: BP 109/72
[2019-07-26] MEDS: LEVOTHYROXINE SODIUM 50 MCG TABLET PO SCH (06:34)
[2019-07-26 06:55] LABS: BASOPHILS % (AUTO) 1.3 % (0.0-2.0); EOSINOPHILS % (AUTO) 4.7 % (1.0-6.0); HEMATOCRIT 32.9 % (41-53); HEMOGLOBIN 11.1 g/dL (13.5-17.5); LYMPHOCYTES # (AUTO) 0.8 K/uL (1.0-4.8); LYMPHOCYTES % (AUTO) 15.9 % (22.0-44.0); MEAN CORPUSCULAR HEMOGLOBIN 32.8 pg (26.0-34.0); MEAN CORPUSCULAR HGB CONC 33.6 G/dL (31.0-37.0); MEAN CORPUSCULAR VOLUME 98 fL (80-100); MONOCYTES # (AUTO) 0.7 K/uL (0.1-1.0); MONOCYTES % (AUTO) 12.4 % (2.0-9.0); NEUTROPHILS # (AUTO) 3.4 K/uL (1.8-7.7); NEUTROPHILS % (AUTO) 65.7 % (40.0-70.0); PLATELET COUNT (AUTO) 128 K/uL (150-450); RED BLOOD CELL COUNT(AUTO) 3.38 MIL/uL (4.50-5.90); RED CELL DISTRIBUTION WIDTH 16.7 % (11.5-14.5)
[2019-07-26 07:19] LABS: CALCIUM, TOTAL 8.7 mg/dL (8.8-10.5); CREATININE 1.24 mg/dL (0.60-1.30); MAGNESIUM 1.7 mg/dL (1.80-2.40); PHOSPHORUS 3.7 mg/dL (2.5-4.9); POTASSIUM 3.6 mmol/L (3.5-5.1)
[2019-07-26 08:06] VITALS: BP 110/68
[2019-07-26] MEDS: LISINOPRIL 5 MG TABLET PO SCH (08:47)
[2019-07-26] MEDS: ASPIRIN 81 MG CHEWABLE TABLET PO SCH (09:12)
[2019-07-26] MEDS: APIXABAN 5 MG TABLET PO SCH ×2 (09:12→20:47)
[2019-07-26] MEDS: DOCUSATE SODIUM 100 MG CAPSULE PO SCH ×2 (09:12→20:47)
[2019-07-26] MEDS: CARVEDILOL 3.125 MG TABLET PO SCH ×2 (09:12→20:42)
[2019-07-26] MEDS: PARoxetine HCL 20 MG TABLET PO SCH (09:12)
[2019-07-26] MEDS: SPIRONOLACTONE 25 MG TABLET PO SCH ×2 (09:12→21:00)
[2019-07-26] MEDS: CYANOCOBALAMIN 100 MCG TABLET PO SCH (09:12)
[2019-07-26] MEDS: PANTOPRAZOLE SODIUM 40 MG DR TABLET PO SCH (09:12)
[2019-07-26] MEDS: CHOLECALCIFEROL (VIT D3) 5,000 UNITS CAPSULE PO SCH (09:12)
[2019-07-26] MEDS: LevETIRAcetam 500 MG TABLET PO SCH ×2 (09:12→20:47)
[2019-07-26] MEDS ORDERED: MAGNESIUM SULFATE 2 GM/WATER 50 ML IV ONE (11:00)
[2019-07-26] MEDS ORDERED: MAGNESIUM SULFATE 1 GM in DEXTROSE 5%-WATER 50 ML IV ONE (12:45)
[2019-07-26] MEDS: POTASSIUM CHL 10 MEQ/WATER 50 ML IV SCH ×3 (13:00→14:53)
[2019-07-26] MEDS ORDERED: POTASSIUM CHLORIDE 20 MEQ ER TABLET PO ONE (15:00)
[2019-07-26 16:34] LABS: ANION GAP 5 mmol/L (8-16); CALCIUM, TOTAL 8.9 mg/dL (8.8-10.5); CARBON DIOXIDE 33 mmol/L (22-29); CHLORIDE 99 mmol/L (98-107); CREATININE 1.16 mg/dL (0.60-1.30); GLOMERULAR FILTR. RATE CALC > 60 mL/min (>60); GLUCOSE,RANDOM 132 mg/dL (70-110); PHOSPHORUS 3.8 mg/dL (2.5-4.9); POTASSIUM 3.8 mmol/L (3.5-5.1); SODIUM SERUM 137 mmol/L (136-145); UREA NITROGEN, BLOOD 12 mg/dL (7-18)
[2019-07-26 20:10] VITALS: BP 99/67
[2019-07-26] MEDS: CLOPIDOGREL BISULFATE 75 MG TABLET PO SCH (20:47)
[2019-07-26] MEDS: ATORVASTATIN CALCIUM 20 MG TABLET PO SCH (20:47)
[2019-07-26] MEDS: CefTRIAXone 1 GM/DEXTROSE 50 ML IV SCH (20:48)
[2019-07-26] MEDS: AZITHROMYCIN 500 MG/NS 250 ML IV SCH (22:08)
[2019-07-27 00:14] VITALS: BP 94/65
[2019-07-27] MEDS: BUMETANIDE 10 MG in DEXTROSE 5%-WATER 60 ML IV SCH ×2 (01:12→20:30)
[2019-07-27] MEDS: IPRATROPIUM BROMIDE 0.5 MG/2.5 ML NEB SOLUTION NEB SCH ×4 (02:00→20:48)
[2019-07-27] MEDS: ALBUTEROL SULFATE 2.5 MG/0.5 ML NEB SOLUTION NEB SCH ×4 (02:00→20:48)
[2019-07-27 04:56] VITALS: BP 102/57
[2019-07-27 05:33] LABS: BASOPHILS % (AUTO) 1.5 % (0.0-2.0); EOSINOPHILS % (AUTO) 5.4 % (1.0-6.0); HEMATOCRIT 32.3 % (41-53); HEMOGLOBIN 10.9 g/dL (13.5-17.5); LYMPHOCYTES # (AUTO) 0.8 K/uL (1.0-4.8); LYMPHOCYTES % (AUTO) 17.3 % (22.0-44.0); MEAN CORPUSCULAR HEMOGLOBIN 32.4 pg (26.0-34.0); MEAN CORPUSCULAR HGB CONC 33.7 G/dL (31.0-37.0); MEAN CORPUSCULAR VOLUME 96 fL (80-100); MONOCYTES # (AUTO) 0.6 K/uL (0.1-1.0); MONOCYTES % (AUTO) 13.5 % (2.0-9.0); NEUTROPHILS # (AUTO) 2.8 K/uL (1.8-7.7); NEUTROPHILS % (AUTO) 62.3 % (40.0-70.0); PLATELET COUNT (AUTO) 125 K/uL (150-450); RED BLOOD CELL COUNT(AUTO) 3.37 MIL/uL (4.50-5.90); RED CELL DISTRIBUTION WIDTH 16.3 % (11.5-14.5)
[2019-07-27 05:49] LABS: CREATININE 1.2 mg/dL (0.60-1.30); MAGNESIUM 1.8 mg/dL (1.80-2.40); PHOSPHORUS 3.4 mg/dL (2.5-4.9); POTASSIUM 3.6 mmol/L (3.5-5.1)
[2019-07-27 07:05] LABS: CREATININE,URINE RANDOM 123.5 mg/dL (30.0-125.0)
[2019-07-27] MEDS: LEVOTHYROXINE SODIUM 50 MCG TABLET PO SCH (07:05)
[2019-07-27 07:58] VITALS: BP 111/69
[2019-07-27] MEDS: APIXABAN 5 MG TABLET PO SCH ×2 (09:25→20:28)
[2019-07-27] MEDS: DOCUSATE SODIUM 100 MG CAPSULE PO SCH ×2 (09:26→20:29)
[2019-07-27] MEDS: PANTOPRAZOLE SODIUM 40 MG DR TABLET PO SCH (09:27)
[2019-07-27] MEDS: LevETIRAcetam 500 MG TABLET PO SCH ×2 (09:27→20:28)
[2019-07-27] MEDS: LISINOPRIL 5 MG TABLET PO SCH (09:28)
[2019-07-27] MEDS: PARoxetine HCL 20 MG TABLET PO SCH (09:28)
[2019-07-27] MEDS: SPIRONOLACTONE 25 MG TABLET PO SCH ×2 (09:28→20:29)
[2019-07-27] MEDS: ASPIRIN 81 MG CHEWABLE TABLET PO SCH (09:28)
[2019-07-27] MEDS: CARVEDILOL 3.125 MG TABLET PO SCH ×2 (09:28→21:00)
[2019-07-27] MEDS: CYANOCOBALAMIN 100 MCG TABLET PO SCH (09:29)
[2019-07-27] MEDS: CHOLECALCIFEROL (VIT D3) 5,000 UNITS CAPSULE PO SCH (09:29)
[2019-07-27 11:41] VITALS: BP 110/75
[2019-07-27] MEDS ORDERED: POTASSIUM CHLORIDE 20 MEQ ER TABLET PO ONE (12:00)
[2019-07-27 15:06] LABS: CALCIUM, TOTAL 8.8 mg/dL (8.8-10.5); CREATININE 1.2 mg/dL (0.60-1.30); POTASSIUM 3.9 mmol/L (3.5-5.1)
[2019-07-27 15:42] VITALS: BP 97/56
[2019-07-27 20:08] VITALS: BP 117/64
[2019-07-27] MEDS: ATORVASTATIN CALCIUM 20 MG TABLET PO SCH (20:29)
[2019-07-27] MEDS: CLOPIDOGREL BISULFATE 75 MG TABLET PO SCH (20:29)
[2019-07-27 22:13] LABS: CALCIUM, TOTAL 8.8 mg/dL (8.8-10.5); CREATININE 1.31 mg/dL (0.60-1.30); POTASSIUM 4.1 mmol/L (3.5-5.1)
[2019-07-28] MEDS: CefTRIAXone 1 GM/DEXTROSE 50 ML IV SCH (00:08)
[2019-07-28 00:10] VITALS: BP 96/59
[2019-07-28] MEDS: AZITHROMYCIN 500 MG/NS 250 ML IV SCH (01:11)
[2019-07-28] MEDS: ALBUTEROL SULFATE 2.5 MG/0.5 ML NEB SOLUTION NEB SCH ×3 (02:07→14:00)
[2019-07-28] MEDS: IPRATROPIUM BROMIDE 0.5 MG/2.5 ML NEB SOLUTION NEB SCH ×3 (02:07→14:00)
[2019-07-28 05:16] VITALS: BP 101/58
[2019-07-28] MEDS: LEVOTHYROXINE SODIUM 50 MCG TABLET PO SCH (06:21)
[2019-07-28 06:55] LABS: BASOPHILS % (AUTO) 1.2 % (0.0-2.0); EOSINOPHILS % (AUTO) 4.9 % (1.0-6.0); HEMATOCRIT 30.8 % (41-53); HEMOGLOBIN 10.6 g/dL (13.5-17.5); LYMPHOCYTES # (AUTO) 0.8 K/uL (1.0-4.8); LYMPHOCYTES % (AUTO) 17.2 % (22.0-44.0); MEAN CORPUSCULAR HEMOGLOBIN 33.6 pg (26.0-34.0); MEAN CORPUSCULAR HGB CONC 34.5 G/dL (31.0-37.0); MEAN CORPUSCULAR VOLUME 97 fL (80-100); MONOCYTES # (AUTO) 0.7 K/uL (0.1-1.0); MONOCYTES % (AUTO) 14.7 % (2.0-9.0); PLATELET COUNT (AUTO) 122 K/uL (150-450); RED BLOOD CELL COUNT(AUTO) 3.16 MIL/uL (4.50-5.90); RED CELL DISTRIBUTION WIDTH 16.1 % (11.5-14.5)
[2019-07-28 07:11] LABS: ALBUMIN 2.7 g/dL (3.4-5.0); BILIRUBIN,TOTAL 1.2 mg/dL (0.1-1.0); CALCIUM, TOTAL 8.7 mg/dL (8.8-10.5); CREATININE 1.33 mg/dL (0.60-1.30); POTASSIUM 3.9 mmol/L (3.5-5.1); TOTAL PROTEIN, SERUM 7.1 g/dL (6.4-8.2)
[2019-07-28 08:37] VITALS: BP 108/69
[2019-07-28] MEDS: LISINOPRIL 5 MG TABLET PO SCH (09:00)
[2019-07-28] MEDS: LevETIRAcetam 500 MG TABLET PO SCH (09:05)
[2019-07-28] MEDS: DOCUSATE SODIUM 100 MG CAPSULE PO SCH (09:05)
[2019-07-28] MEDS: PANTOPRAZOLE SODIUM 40 MG DR TABLET PO SCH (09:05)
[2019-07-28] MEDS: APIXABAN 5 MG TABLET PO SCH (09:05)
[2019-07-28] MEDS: SPIRONOLACTONE 25 MG TABLET PO SCH (09:06)
[2019-07-28] MEDS: CYANOCOBALAMIN 100 MCG TABLET PO SCH (09:06)
[2019-07-28] MEDS: CHOLECALCIFEROL (VIT D3) 5,000 UNITS CAPSULE PO SCH (09:06)
[2019-07-28] MEDS: CARVEDILOL 3.125 MG TABLET PO SCH (09:06)
[2019-07-28] MEDS: ASPIRIN 81 MG CHEWABLE TABLET PO SCH (09:06)
[2019-07-28] MEDS: PARoxetine HCL 20 MG TABLET PO SCH (09:07)
[2019-07-28 10:50] LABS: INR 1.4 (0.9-1.1); PROTHROMBIN TIME 13.9 SEC (9.4-11.6)
[2019-07-28 12:02] VITALS: BP 107/96
[2019-07-28] MEDS ORDERED: AUD NEB (13:12)
[2019-07-28 13:17] LABS: CALCIUM, TOTAL 8.8 mg/dL (8.8-10.5); CREATININE 1.32 mg/dL (0.60-1.30); POTASSIUM 4.2 mmol/L (3.5-5.1)
[2019-07-28] MEDS ORDERED: BUME0.253 IV (15:25)
[2019-07-28] MEDS ORDERED: DOCU-275 PO (15:26)
[2019-07-28 15:27] VITALS: BP 124/88
[2019-07-28] MEDS ORDERED: IPRNEB IH (15:28)
[2019-07-28] MEDS ORDERED: LEVE500T53 PO (15:29)
[2019-07-28] MEDS ORDERED: LISI-660 PO (15:29)
[2019-07-28] MEDS ORDERED: SPIR25 PO (15:30)
[2019-07-28] MEDS ORDERED: PANT40TA25 PO (15:30)
[2019-07-28] MEDS ORDERED: ACET-2247 PO (15:31)
[2019-07-28] MEDS ORDERED: A20IH1 NEB (15:32)
[2019-07-28] MEDS ORDERED: IPRNEB NEB (15:33)
[2019-07-28] MEDS ORDERED: NS5H IVCATH (15:34)
[2019-07-28] MEDS ORDERED: BUMETANIDE 0.25 MG/ML 4 ML VIAL IVP SCH (16:00)
[2019-07-28 19:35] VITALS: BP 110/70
== END 2019-07-28 20:10 | DRG 291 ==
LOC: EMS 19:34 → 5S 23:10
PROVIDERS: ADMIT Internal Medicine; ATTEND Internal Medicine
DX: I11.0 Hypertensive heart disease with heart failure (principal); J18.9 Pneumonia, unspecified organism; E43 Unspecified severe protein-calorie malnutrition; J44.0 Chronic obstructive pulmonary disease with (acute) lower respiratory infection; R18.8 Other ascites; I87.1 Compression of vein; I50.43 Acute on chronic combined systolic (congestive) and diastolic (congestive) heart failure; D63.8 Anemia in other chronic diseases classified elsewhere; E03.9 Hypothyroidism, unspecified; E11.9 Type 2 diabetes mellitus without complications; E66.01 Morbid (severe) obesity due to excess calories; E78.00 Pure hypercholesterolemia, unspecified; E78.5 Hyperlipidemia, unspecified; E87.6 Hypokalemia; I25.119 Atherosclerotic heart disease of native coronary artery with unspecified angina pectoris; I25.5 Ischemic cardiomyopathy; I48.0 Paroxysmal atrial fibrillation; K76.0 Fatty (change of) liver, not elsewhere classified; R91.8 Other nonspecific abnormal finding of lung field; N28.9 Disorder of kidney and ureter, unspecified; R56.9 Unspecified convulsions; Z79.899 Other long term (current) drug therapy; Z82.49 Family history of ischemic heart disease and other diseases of the circulatory system; Z79.82 Long term (current) use of aspirin; Z68.38 Body mass index [BMI] 38.0-38.9, adult; Z83.3 Family history of diabetes mellitus; Z86.73 Personal history of transient ischemic attack (TIA), and cerebral infarction without residual deficits; Z87.891 Personal history of nicotine dependence; Z95.1 Presence of aortocoronary bypass graft; Z95.810 Presence of automatic (implantable) cardiac defibrillator; Z99.81 Dependence on supplemental oxygen
CPT/HCPCS: 71250; 76700; 76770; 82043; 82570; 83735; 84100; 84132; 84156; 84300; 93005; 93306; 93971; 94640; 97116; 97163; 97166; 97530; 97535; G0378; J0456; J0696; J1940; J3475; J3490; J7050; J7060

== ENCOUNTER 2019-11-11 15:02 | Inpatient (IN) | payer MEDICARE, MEDICAID ==
[2019-11-11] VITALS (10 sets, daily range): BP systolic 93–105; BP diastolic 53–66
[~2019-11-11] VITALS: Ht 165.1 cm; Wt 104.3 kg
[~2019-11-11 15:02] MED LIST changes: +A20IH1 NEB; +ACET-2247 PO; +ASPI-728 PO; -ASPI81 PO; +AUD NEB; +BUME0.253 IV; -BUME1TAB34 PO; +CARV25 PO; -CARV3 PO; -CHOL100018 PO; +CHOL125C2 PO; +DOCU-275 PO; +FURO20 PO; +IPRNEB IH; +IPRNEB NEB; +LISI-660 PO; +NS5H IVCATH; +PANT40TA25 PO; +SPIR25 PO
[2019-11-11 16:26] LABS: BASOPHILS % (AUTO) 1.6 % (0.0-2.0); EOSINOPHILS % (AUTO) 5.3 % (1.0-6.0); LYMPHOCYTES # (AUTO) 0.6 K/uL (1.0-4.8); LYMPHOCYTES % (AUTO) 13.2 % (22.0-44.0); MEAN CORPUSCULAR HEMOGLOBIN 28.7 pg (26.0-34.0); MEAN CORPUSCULAR VOLUME 87 fL (80-100); MONOCYTES # (AUTO) 0.5 K/uL (0.1-1.0); MONOCYTES % (AUTO) 10.9 % (2.0-9.0); NEUTROPHILS # (AUTO) 3.1 K/uL (1.8-7.7); PLATELET COUNT (AUTO) 141 K/uL (150-450); RED BLOOD CELL COUNT(AUTO) 1.98 MIL/uL (4.50-5.90); RED CELL DISTRIBUTION WIDTH 16.1 % (11.5-14.5)
[2019-11-11 16:37] LABS: CREATININE 2.75 mg/dL (0.60-1.30); HEMATOCRIT 17.2 % (41-53); HEMOGLOBIN 5.7 g/dL (13.5-17.5); POTASSIUM 5.6 mmol/L (3.5-5.1)
[2019-11-11 16:43] LABS: ALBUMIN 2.7 g/dL (3.4-5.0); BILIRUBIN,TOTAL 0.7 mg/dL (0.1-1.0); TOTAL PROTEIN, SERUM 6.9 g/dL (6.4-8.2)
[2019-11-11] MEDS ORDERED: ONDANSETRON HCL 4 MG/2 ML VIAL IVP PRN (18:30)
[2019-11-11] MEDS ORDERED: 0.9% SODIUM CHLORIDE 10 ML SYRINGE IVP PRN (18:30)
[2019-11-11] MEDS ORDERED: ACETAMINOPHEN 325 MG TABLET PO PRN (18:30)
[2019-11-12] VITALS (23 sets, daily range): BP systolic 90–115; BP diastolic 48–76
[2019-11-12] MEDS ORDERED: INFLUENZA VIRUS VACCINE QVS 2019-20 (3YR+)/PF 60 MCG/0.5 ML SYRINGE IM ONE (01:30)
[2019-11-12] MEDS: PANTOPRAZOLE SODIUM 40 MG/VIAL IVP SCH ×2 (02:30→08:11)
[2019-11-12] MEDS ORDERED: MAGNESIUM HYDROXIDE SUSPENSION 30 ML UDCUP PO PRN (02:45)
[2019-11-12] MEDS: CARVEDILOL 25 MG TABLET PO SCH ×3 (02:45→19:53)
[2019-11-12] MEDS ORDERED: OxyCODONE HCL/ACETAMINOPHEN 5-325 MG TABLET PO PRN ×2 (02:45)
[2019-11-12] MEDS ORDERED: 0.9% SODIUM CHLORIDE 10 ML SYRINGE IVP PRN (02:45)
[2019-11-12] MEDS ORDERED: ALBUTEROL SULFATE 2.5 MG/0.5 ML NEB SOLUTION NEB PRN (02:45)
[2019-11-12] MEDS: SPIRONOLACTONE 25 MG TABLET PO SCH ×3 (02:45→19:53)
[2019-11-12] MEDS ORDERED: ALBUMIN HUMAN 25%-12.5GM/50ML 50 ML IV ONE (02:45)
[2019-11-12] MEDS ORDERED: ACETAMINOPHEN 325 MG TABLET PO PRN (02:45)
[2019-11-12] MEDS: LevETIRAcetam 500 MG TABLET PO SCH ×3 (02:45→19:53)
[2019-11-12] MEDS: DOCUSATE SODIUM 100 MG CAPSULE PO SCH ×3 (02:45→19:51)
[2019-11-12] MEDS ORDERED: ONDANSETRON HCL 4 MG/2 ML VIAL IVP PRN (02:45)
[2019-11-12] MEDS: LEVOTHYROXINE SODIUM 50 MCG TABLET PO SCH (05:55)
[2019-11-12 07:35] LABS: EOSINOPHILS % (AUTO) 6.3 % (1.0-6.0); LYMPHOCYTES # (AUTO) 0.6 K/uL (1.0-4.8); LYMPHOCYTES % (AUTO) 11.6 % (22.0-44.0); MEAN CORPUSCULAR HEMOGLOBIN 29.4 pg (26.0-34.0); MEAN CORPUSCULAR VOLUME 87 fL (80-100); MONOCYTES # (AUTO) 0.5 K/uL (0.1-1.0); MONOCYTES % (AUTO) 10.2 % (2.0-9.0); NEUTROPHILS # (AUTO) 3.5 K/uL (1.8-7.7); NEUTROPHILS % (AUTO) 70.9 % (40.0-70.0); PLATELET COUNT (AUTO) 137 K/uL (150-450); RED BLOOD CELL COUNT(AUTO) 1.95 MIL/uL (4.50-5.90); RED CELL DISTRIBUTION WIDTH 15.6 % (11.5-14.5)
[2019-11-12 08:00] LABS: HEMATOCRIT 16.9 % (41-53); HEMOGLOBIN 5.7 g/dL (13.5-17.5)
[2019-11-12] MEDS: PARoxetine HCL 20 MG TABLET PO SCH (08:11)
[2019-11-12] MEDS: BUMETANIDE 0.25 MG/ML 4 ML VIAL IVP SCH (08:12)
[2019-11-12 08:14] LABS: ALBUMIN 2.7 g/dL (3.4-5.0); BILIRUBIN,TOTAL 0.7 mg/dL (0.1-1.0); CALCIUM, TOTAL 8.1 mg/dL (8.8-10.5); CREATININE 2.32 mg/dL (0.60-1.30); POTASSIUM 5.2 mmol/L (3.5-5.1); TOTAL PROTEIN, SERUM 6.8 g/dL (6.4-8.2)
[2019-11-12] MEDS: ALBUTEROL SULFATE 2.5 MG/0.5 ML NEB SOLUTION NEB SCH ×3 (08:39→21:28)
[2019-11-12] MEDS: IPRATROPIUM BROMIDE 0.5 MG/2.5 ML NEB SOLUTION NEB SCH ×2 (08:39→13:53)
[2019-11-12] MEDS ORDERED: SODIUM CHLORIDE 0.9% 250 ML IV ONE ×2 (10:33→14:04)
[2019-11-12] MEDS: PANTOPRAZOLE SODIUM 80 MG in SODIUM CHLORIDE 0.9% 100 ML IV SCH ×2 (10:41→19:51)
[2019-11-12] MEDS ORDERED: POTA10TA PO (12:42)
[2019-11-12] MEDS ORDERED: TAMS-13 PO (12:42)
[2019-11-12] MEDS ORDERED: MV-M1TAB2 PO (12:42)
[2019-11-12] MEDS ORDERED: PEG 3350/NA SULF,BICARB,CL/KCL 4000 ML SOLUTION PO ONE (17:15)
[2019-11-13] VITALS (16 sets, daily range): BP systolic 77–109; BP diastolic 44–63
[2019-11-13] MEDS: ALBUTEROL SULFATE 2.5 MG/0.5 ML NEB SOLUTION NEB SCH ×4 (02:38→20:09)
[2019-11-13] MEDS: IPRATROPIUM BROMIDE 0.5 MG/2.5 ML NEB SOLUTION NEB SCH ×5 (02:38→20:09)
[2019-11-13 04:33] LABS: BASOPHILS % (AUTO) 1.6 % (0.0-2.0); HEMATOCRIT 21.5 % (41-53); LYMPHOCYTES # (AUTO) 0.5 K/uL (1.0-4.8); LYMPHOCYTES % (AUTO) 9.6 % (22.0-44.0); MEAN CORPUSCULAR HEMOGLOBIN 28.4 pg (26.0-34.0); MEAN CORPUSCULAR HGB CONC 32.8 G/dL (31.0-37.0); MEAN CORPUSCULAR VOLUME 87 fL (80-100); MONOCYTES # (AUTO) 0.5 K/uL (0.1-1.0); MONOCYTES % (AUTO) 10.6 % (2.0-9.0); NEUTROPHILS # (AUTO) 3.6 K/uL (1.8-7.7); NEUTROPHILS % (AUTO) 71.2 % (40.0-70.0); PLATELET COUNT (AUTO) 124 K/uL (150-450); RED BLOOD CELL COUNT(AUTO) 2.48 MIL/uL (4.50-5.90); RED CELL DISTRIBUTION WIDTH 16.5 % (11.5-14.5)
[2019-11-13] MEDS: PANTOPRAZOLE SODIUM 80 MG in SODIUM CHLORIDE 0.9% 100 ML IV SCH ×2 (04:34→16:58)
[2019-11-13 04:44] LABS: CREATININE 2.07 mg/dL (0.60-1.30); INR 1.4 (0.9-1.1); POTASSIUM 5.3 mmol/L (3.5-5.1); PROTHROMBIN TIME 13.9 SEC (9.4-11.6)
[2019-11-13] MEDS: LEVOTHYROXINE SODIUM 50 MCG TABLET PO SCH (05:47)
[2019-11-13] MEDS: BUMETANIDE 0.25 MG/ML 4 ML VIAL IVP SCH (08:07)
[2019-11-13] MEDS: SPIRONOLACTONE 25 MG TABLET PO SCH ×2 (08:10→20:18)
[2019-11-13] MEDS: CARVEDILOL 25 MG TABLET PO SCH ×3 (08:10→21:00)
[2019-11-13] MEDS: DOCUSATE SODIUM 100 MG CAPSULE PO SCH ×2 (08:10→20:18)
[2019-11-13] MEDS: PARoxetine HCL 20 MG TABLET PO SCH (08:11)
[2019-11-13] MEDS: LevETIRAcetam 500 MG TABLET PO SCH ×2 (08:11→20:18)
[2019-11-13] MEDS ORDERED: SODIUM CHLORIDE 0.9% 1,000 ML ONE (08:33)
[2019-11-13] MEDS ORDERED: FUROSEMIDE 40 MG/4 ML VIAL IVP ONE (16:30)
[2019-11-13] MEDS ORDERED: KDUR20 PO (16:32)
[2019-11-13 17:22] LABS: BASOPHILS % (AUTO) 2.2 % (0.0-2.0); EOSINOPHILS % (AUTO) 9.1 % (1.0-6.0); HEMATOCRIT 24.7 % (41-53); LYMPHOCYTES # (AUTO) 0.5 K/uL (1.0-4.8); LYMPHOCYTES % (AUTO) 11.5 % (22.0-44.0); MEAN CORPUSCULAR HEMOGLOBIN 28.8 pg (26.0-34.0); MEAN CORPUSCULAR HGB CONC 32.6 G/dL (31.0-37.0); MEAN CORPUSCULAR VOLUME 88 fL (80-100); MONOCYTES # (AUTO) 0.4 K/uL (0.1-1.0); MONOCYTES % (AUTO) 9.5 % (2.0-9.0); NEUTROPHILS # (AUTO) 2.9 K/uL (1.8-7.7); NEUTROPHILS % (AUTO) 67.7 % (40.0-70.0); PLATELET COUNT (AUTO) 127 K/uL (150-450); RED BLOOD CELL COUNT(AUTO) 2.79 MIL/uL (4.50-5.90); RED CELL DISTRIBUTION WIDTH 16.8 % (11.5-14.5)
[2019-11-13 17:28] LABS: APPEARANCE,URINE CLEAR (CLEAR); BILIRUBIN,URINE NEGATIVE (NEGATIVE); GLUCOSE, URINE (UA) NEGATIVE (NEGATIVE); KETONES,URINE NEGATIVE (NEGATIVE); LEUKOCYTE ESTERASE ,URINE NEGATIVE (NEGATIVE); NITRATE,URINE NEGATIVE (NEGATIVE); OCCULT BLOOD,URINE NEGATIVE (NEGATIVE); PROTEIN,URINE NEGATIVE (NEGATIVE); UROBILINOGEN,URINE 0.2 mg/dL (<=1.0)
[2019-11-13 17:31] LABS: CREATININE,URINE RANDOM 73.1 mg/dL (30.0-125.0); PROTEIN,URINE RANDOM 21 mg/dL (0-11.9); SODIUM,URINE RANDOM 12 mmol/l (20-110); UREA NITROGEN,URINE RANDOM 688 mg/dL (350-1000)
[2019-11-13 17:32] LABS: CALCIUM, TOTAL 8.4 mg/dL (8.8-10.5); CREATININE 1.92 mg/dL (0.60-1.30); POTASSIUM 4.7 mmol/L (3.5-5.1)
[2019-11-13 17:37] LABS: ALBUMIN 2.6 g/dL (3.4-5.0); BILIRUBIN,TOTAL 1.1 mg/dL (0.1-1.0); TOTAL PROTEIN, SERUM 6.6 g/dL (6.4-8.2)
[2019-11-14] VITALS (8 sets, daily range): BP systolic 83–103; BP diastolic 49–63
[2019-11-14] MEDS: PANTOPRAZOLE SODIUM 80 MG in SODIUM CHLORIDE 0.9% 100 ML IV SCH ×3 (00:56→21:57)
[2019-11-14] MEDS: IPRATROPIUM BROMIDE 0.5 MG/2.5 ML NEB SOLUTION NEB SCH ×4 (01:07→21:35)
[2019-11-14] MEDS: ALBUTEROL SULFATE 2.5 MG/0.5 ML NEB SOLUTION NEB SCH ×4 (01:07→21:34)
[2019-11-14 05:07] LABS: BASOPHILS % (AUTO) 1.5 % (0.0-2.0); EOSINOPHILS % (AUTO) 7.2 % (1.0-6.0); HEMATOCRIT 23.7 % (41-53); LYMPHOCYTES # (AUTO) 0.6 K/uL (1.0-4.8); LYMPHOCYTES % (AUTO) 10.9 % (22.0-44.0); MEAN CORPUSCULAR HEMOGLOBIN 29.6 pg (26.0-34.0); MEAN CORPUSCULAR HGB CONC 33.8 G/dL (31.0-37.0); MEAN CORPUSCULAR VOLUME 88 fL (80-100); MONOCYTES # (AUTO) 0.6 K/uL (0.1-1.0); MONOCYTES % (AUTO) 10.4 % (2.0-9.0); NEUTROPHILS # (AUTO) 3.8 K/uL (1.8-7.7); PLATELET COUNT (AUTO) 133 K/uL (150-450); RED BLOOD CELL COUNT(AUTO) 2.71 MIL/uL (4.50-5.90); RED CELL DISTRIBUTION WIDTH 16.5 % (11.5-14.5)
[2019-11-14 05:18] LABS: CREATININE 1.87 mg/dL (0.60-1.30); POTASSIUM 4.4 mmol/L (3.5-5.1)
[2019-11-14] MEDS ORDERED: EPHEDrine SULFATE 50 MG/ML VIAL IM ONE (05:27)
[2019-11-14] MEDS ORDERED: KETAMINE HCL 50 MG/ML 10 ML VIAL IVP ONE (05:27)
[2019-11-14] MEDS ORDERED: LIDOCAINE 1% 10 ML VIAL IM ONE (05:27)
[2019-11-14] MEDS ORDERED: PROPOFOL 1% 20 ML VIAL IVP ONE (05:27)
[2019-11-14] MEDS ORDERED: 0.9% SODIUM CHLORIDE 10 ML VIAL IVP ONE (05:27)
[2019-11-14 05:28] LABS: CALCIUM, TOTAL 8.5 mg/dL (8.8-10.5)
[2019-11-14] MEDS: SPIRONOLACTONE 25 MG TABLET PO SCH ×2 (09:26→21:00)
[2019-11-14] MEDS: LevETIRAcetam 500 MG TABLET PO SCH ×2 (09:26→21:58)
[2019-11-14] MEDS: CARVEDILOL 25 MG TABLET PO SCH ×2 (09:26→21:00)
[2019-11-14] MEDS: BUMETANIDE 0.25 MG/ML 4 ML VIAL IVP SCH (09:26)
[2019-11-14] MEDS: DOCUSATE SODIUM 100 MG CAPSULE PO SCH ×2 (09:27→21:58)
[2019-11-14] MEDS: PARoxetine HCL 20 MG TABLET PO SCH (09:30)
[2019-11-14] MEDS: LEVOTHYROXINE SODIUM 50 MCG TABLET PO SCH (09:32)
[2019-11-14 17:50] LABS: BASOPHILS % (AUTO) 1.1 % (0.0-2.0); EOSINOPHILS % (AUTO) 7.8 % (1.0-6.0); HEMATOCRIT 25.3 % (41-53); HEMOGLOBIN 8.4 g/dL (13.5-17.5); LYMPHOCYTES # (AUTO) 0.6 K/uL (1.0-4.8); LYMPHOCYTES % (AUTO) 10.1 % (22.0-44.0); MEAN CORPUSCULAR HEMOGLOBIN 29.2 pg (26.0-34.0); MEAN CORPUSCULAR HGB CONC 33.2 G/dL (31.0-37.0); MEAN CORPUSCULAR VOLUME 88 fL (80-100); MONOCYTES # (AUTO) 0.6 K/uL (0.1-1.0); MONOCYTES % (AUTO) 11.1 % (2.0-9.0); NEUTROPHILS # (AUTO) 3.9 K/uL (1.8-7.7); NEUTROPHILS % (AUTO) 69.9 % (40.0-70.0); PLATELET COUNT (AUTO) 138 K/uL (150-450); RED BLOOD CELL COUNT(AUTO) 2.87 MIL/uL (4.50-5.90)
[2019-11-15] MEDS: ALBUTEROL SULFATE 2.5 MG/0.5 ML NEB SOLUTION NEB SCH ×3 (02:00→14:50)
[2019-11-15] MEDS: IPRATROPIUM BROMIDE 0.5 MG/2.5 ML NEB SOLUTION NEB SCH ×3 (02:00→14:50)
[2019-11-15 04:31] VITALS: BP 98/46
[2019-11-15] MEDS: PANTOPRAZOLE SODIUM 80 MG in SODIUM CHLORIDE 0.9% 100 ML IV SCH (05:56)
[2019-11-15] MEDS: LEVOTHYROXINE SODIUM 50 MCG TABLET PO SCH (05:57)
[2019-11-15 07:40] VITALS: BP 94/53
[2019-11-15] MEDS: SPIRONOLACTONE 25 MG TABLET PO SCH (09:00)
[2019-11-15] MEDS: BUMETANIDE 0.25 MG/ML 4 ML VIAL IVP SCH (09:00)
[2019-11-15] MEDS: CARVEDILOL 25 MG TABLET PO SCH (09:00)
[2019-11-15] MEDS: DOCUSATE SODIUM 100 MG CAPSULE PO SCH (09:00)
[2019-11-15] MEDS: LevETIRAcetam 500 MG TABLET PO SCH (09:18)
[2019-11-15] MEDS: PARoxetine HCL 20 MG TABLET PO SCH (09:19)
[2019-11-15 11:12] VITALS: BP 92/57
[2019-11-15] MEDS ORDERED: FURO20 PO (13:26)
[2019-11-15 15:10] VITALS: BP 89/55
== END 2019-11-15 17:00 | disposition home or self-care (01) | DRG 393 ==
LOC: EMS 15:03 → 6N 18:46 → 5N 18:47 → ICU 11-13 10:00 → 5S 11-14 12:13
PROVIDERS: ADMIT Internal Medicine; ATTEND Hospitalist
PROC: 30233N1 Transfusion of Nonautologous Red Blood Cells into Peripheral Vein, Percutaneous Approach (ICD-10-PCS; 2019-11-11)
PROC: 0DJD8ZZ Inspection of Lower Intestinal Tract, Via Natural or Artificial Opening Endoscopic (ICD-10-PCS; principal; 2019-11-13 09:00)
DX: K64.1 Second degree hemorrhoids (principal); E43 Unspecified severe protein-calorie malnutrition; N17.9 Acute kidney failure, unspecified; E87.1 Hypo-osmolality and hyponatremia; I13.0 Hypertensive heart and chronic kidney disease with heart failure and stage 1 through stage 4 chronic kidney disease, or unspecified chronic kidney disease; I50.22 Chronic systolic (congestive) heart failure; I95.9 Hypotension, unspecified; E78.5 Hyperlipidemia, unspecified; E87.5 Hyperkalemia; N18.3 Chronic kidney disease, stage 3 (moderate); E11.22 Type 2 diabetes mellitus with diabetic chronic kidney disease; E03.9 Hypothyroidism, unspecified; E87.6 Hypokalemia; I25.5 Ischemic cardiomyopathy; D64.9 Anemia, unspecified; K63.5 Polyp of colon; G40.909 Epilepsy, unspecified, not intractable, without status epilepticus; I25.10 Atherosclerotic heart disease of native coronary artery without angina pectoris; D50.0 Iron deficiency anemia secondary to blood loss (chronic); K57.30 Diverticulosis of large intestine without perforation or abscess without bleeding; E66.9 Obesity, unspecified; J44.9 Chronic obstructive pulmonary disease, unspecified; E78.00 Pure hypercholesterolemia, unspecified; I65.23 Occlusion and stenosis of bilateral carotid arteries; D63.8 Anemia in other chronic diseases classified elsewhere; I48.0 Paroxysmal atrial fibrillation; I70.0 Atherosclerosis of aorta; Z86.73 Personal history of transient ischemic attack (TIA), and cerebral infarction without residual deficits; Z95.810 Presence of automatic (implantable) cardiac defibrillator; Z95.1 Presence of aortocoronary bypass graft; Z28.21 Immunization not carried out because of patient refusal; Z68.38 Body mass index [BMI] 38.0-38.9, adult; Z79.01 Long term (current) use of anticoagulants; Z79.82 Long term (current) use of aspirin; Z79.02 Long term (current) use of antithrombotics/antiplatelets; Z87.891 Personal history of nicotine dependence
CPT/HCPCS: 76770; 82271; 82570; 83605; 84156; 84300; 84540; 86850; 86900; 86901; 86920; 87081; 93005; 93306; 94640; 96365; 96375; C9113; G0378; J1940; J2704; J3490; J7030; J7050; P9016; P9047